=== PATIENT | female | born 1935 | race African-American/Black ===

== ENCOUNTER 2020-07-16 18:04 | Observation (INO) | payer MEDICARE, MEDICAID, SELFPAY ==
[2020-07-16] VITALS (7 sets, daily range): BP systolic 137–165; BP diastolic 65–109; PULSE 60–96; RESP 18–22; TEMP 37.4; O2SAT 100
--- NOTE | ~2020-07-16 | XR_ITS ---
EXAMINATION: XR chest 2V DATE: 07/16/2020 18:41 INDICATION: Shortness of breath TECHNIQUE: AP and lateral views of the chest are obtained. COMPARISON: None available FINDINGS: There are right perihilar opacities. Cardiomegaly is noted. There is no pleural effusion or pneumothorax. A dual-lead cardiac pacemaker of the left chest wall ends with leads in expected locat ions. Endoluminal stents are noted in the left upper extremity and the right subclavian vein. There i s severe thoracic spondylosis. IMPRESSION: 1. Right perihilar opacities which could be infectious or inflammatory although perihilar mass is a c onsideration. Further evaluation with CT of the chest is recommended. 2. Cardiomegaly. Reviewed, dictated and finalized at location A. IMPRESSION: 1. Right perihilar opacities which could be infectious or inflammatory although perihilar mass is a consideration. Further evaluation with CT of the chest is recommended. 2. Cardiomegaly.
--- NOTE | ~2020-07-16 | CT_ITS ---
EXAMINATION: CT diagnostic chest wo con DATE: 07/16/2020 22:10 INDICATION: Shortness of breath TECHNIQUE: Computed tomography (CT) of the chest was performed without intravenous contrast. The dose -length product (DLP) was 106.03 mGy-cm. Automated exposure control and iterative reconstruction tech nique were employed. COMPARISON: None FINDINGS: There are small pleural effusions. Fluid in the minor fissure accounts for the perihilar op acity described on chest radiograph from earlier today. There is a 1.6 cm nodular opacity of the righ t lung apex. There are innumerable nodules scattered throughout all lung zones which measure up to 3 mm. Cardiomegaly is noted. A dual-lead pacemaker of the left chest wall ends with its leads in the ri ght atrium and right ventricle. There is no pneumothorax. There is enlargement of the main and centra l pulmonary arteries, consistent with pulmonary hypertension. There is severe thoracic spondylosis. A n endoluminal stent is present in the right subclavian vein. There is a partially imaged endoluminal stent in the left axilla. IMPRESSION: 1. Small pleural effusions with loculated fluid in the minor fissure accounting for the chest radiogr aphic finding in question. 2. Cardiomegaly. 3. Nodular opacity of the right lung apex which may be infectious or inflammatory. Follow-up CT in th ree months is recommended. 4. Innumerable small lung nodules, possibly infectious or inflammatory. Attention on follow-up CT is recommended. Reviewed, dictated and finalized at location A. IMPRESSION: 1. Small pleural effusions with loculated fluid in the minor fissure accounting for the chest radiographic finding in question. 2. Cardiomegaly. 3. Nodular opacity of the right lung apex which may be infectious or inflammato ry. Follow-up CT in three months is recommended. 4. Innumerable small lung nodules, possibly infectious or inflammatory. Attenti on on follow-up CT is recommended.
--- NOTE | ~2020-07-16 | NM_ITS ---
EXAMINATION: NM pulmonary perfusion DATE: 07/16/2020 23:29 INDICATION: Shortness of breath TECHNIQUE: 2.8 mCi Tc-99m MAA was administered intravenously for perfusion images. Scintigraphic imag es of the chest were obtained. COMPARISON: None FINDINGS: Cardiomegaly is noted. Perfusion images show normal perfusion.. IMPRESSION: 1. Low probability for pulmonary embolism. Reviewed, dictated and finalized at location A.
--- NOTE | 2020-07-16 18:24 | ECG_ITS ---
Measurements Intervals [place] Rate: 76 P: 65 OK: 177 QRS: 73 QRSD: 173 T: -7 QT: 485 QTc: 546 Interpretive Statements ELECTRONIC ATRIAL PACEMAKER WITH INHIBITION ELECTRONIC VENTRICULAR PACEMAKER ATRIAL PREMATURE COMPLEXES BASELINE ARTIFACT- I, III, AVR, AVL, AVF, V3 NO FURTHER INTERPRETATION IS POSSIBLE ATYPICAL ECG Electronically Signed On 07-16-2020 19:03:38 CDT by Wilton Silva D.O.
--- NOTE | 2020-07-16 19:10 | PC.NURSE ---
Report given to GIANNI Ahn and Lizy RN
--- NOTE | 2020-07-16 19:15 | PC.NURSE ---
Pt. nelda smith. times for blood draw and IV access
--- NOTE | 2020-07-16 19:22 | ED.SOB ---
HPI - SOB/Dyspnea General Chief Complaint: Shortness of Breath/Dyspnea Stated Complaint: sob Time Seen by Provider: 07/16/20 19:13 Source: patient Mode of arrival: EMS Limitations: clinical condition History of Present Illness HPI Narrative: Patient is an 84-year-old female complaining of shortness of breath, going on for a while but worse today. Patient also complaining of left leg pain which she states started approximately 6 months ago when she fell. Per EMS when they arrived her oxygen saturation was 88%, was placed on 2 L nasal cannula and eventually went up to 98%. Patient denies any chest pain, abdominal pain, nausea, vomiting, fever or chills. Patient states she has a history of COPD, CHF and end-stage renal disease on dialysis. Patient states she gets dialysis on Wednesdays and Fridays, missed yesterday because of pain in her left lower extremity. Related Data Allergies Allergy/AdvReac Type Severity Reaction Status Date / Time Sulfa (Sulfonamide Allergy Unknown Verified 07/16/20 18:20 Antibiotics) Review of Systems Review of Systems: All systems reviewed & are unremarkable except as noted in HPI and below Constitutional: Constitutional: Denies body ache(s), Denies chills, Denies excessive sweating, Denies fatigue, Denies fever(s), Denies headache(s), Denies lethargy, Denies malaise, Denies weakness and Denies weight loss Eyes: Eyes: Denies blurry vision, Denies change in vision and Denies loss of vision ENT: Denies dizziness, Denies ear discharge, Denies headache(s), Denies lip swelling, Denies epistaxis, Denies nasal congestion, Denies neck pain, Denies throat swelling and Denies tongue swelling Cardiovascular: Cardiovascular: Denies chest pain, Denies chest pain at rest, Denies chest pain with activity, Denies diaphoresis, Denies rapid heart rate, Denies edema, Denies irregular heart rhythm, Denies lightheadedness and Denies palpitations Respiratory: Respiratory: Denies chest congestion, Reports cough and Denies hemoptysis Gastrointestinal: Gastrointestinal: Denies abdominal pain, Denies melena, Denies hematochezia, Denies diarrhea, Denies nausea, Denies vomiting and Denies hematemesis Musculoskeletal: Musculoskeletal: Denies abnormal gait, Denies deformity, Denies joint swelling, Denies limited range of motion, Denies neck pain and Denies numbness Neurologic: Denies Abnormal speech present, Denies abnormal gait, Denies confusion, Denies dizziness, Denies headache(s), Denies focal weakness, Denies loss of vision, Denies numbness, Denies Other visual disturbances, Denies Sensory deficit (Neuro) and Denies weakness Psychiatric: Psychiatric: Denies confusion, Denies depression, Denies auditory hallucinations, Denies homicidal ideation and Denies suicidal ideation Endocrine: Endocrine: Denies cold intolerance, Denies excessive sweating, Denies fatigue, Denies heat intolerance and Denies palpitations Hematologic/Lymphatic: Hematologic/Lymphatic: Denies easy bleeding and Denies easy bruising Allergic/Immunologic: Allergic/Immunologic: Denies lip swelling, Denies throat swelling and Denies tongue swelling Exam Const: General: cooperative, comfortable, well developed, alert and awake; No confusion Orientation/consciousness: oriented to person and oriented to place Limitations: no limitations Other: Moderate distress, frail, ill-appearing HENMT: Head: normal to inspection, normocephalic and atraumatic Ears: hearing grossly normal bilaterally, TM normal on the right and TM normal on the left General nose exam: Normal external nose present, Normal nares present and No nasal discharge present Face and sinus: normal facial exam Mouth: Yes Normal oral and palatal mucosa present, Yes lip normal, Yes tongue normal and Yes oropharynx normal Throat: posterior oropharynx normal, tonsils normal and uvula midline Eyes: General: appearance normal, both eyes and all related structures Pupils: Equal, round and reactive pupils p
--- NOTE | 2020-07-16 19:27 | PC.NURSE ---
assumed care of pt. Report from Basia ARCHER
[2020-07-16] MEDS: IPRATROPIUM BR 0.02% INH SOLN 0.5 MG/2.5 ML VIAL INHALATION (19:31)
[2020-07-16] MEDS: ALBUTEROL SULFATE NEB 2.5 MG/0.5 ML INH 5 MG INHALATION (19:31)
--- NOTE | 2020-07-16 19:35 | PC.NURSE ---
RN attempted IV access 2x no success. second RN in to attempt.
--- NOTE | 2020-07-16 19:40 | PC.NURSE ---
RT nelda pt. for blood due to unsuccessful blood draws.
[2020-07-16 19:47] LABS: Alveolar/Arterial O2 Gradient 72.5 mmHg; Base Excess ABG 6.5 mEq/l (+/-2.0); Carboxyhemoglobin 0.9 % THb (0-2.0); Fractional Inspired Oxygen 32 %; HCO3 ABG 31.2 mEq/l (22.0-26.0); Methemoglobin ABG 0.2 %THb (0-1.5); Oxygen Content ABG 14.7 %vol (16.0-22.0); Oxygen Saturation ABG 97.9 % (95.0-100.0); Oxyhemoglobin 95.9 % THb (90.0-100.0); PCO2 ABG 45.6 mmHg (35.0-45.0); PO2 ABG 102.3 mmHg (80.0-100.0); Total Hemoglobin 10.8 g/dL (12.0-18.0); pH ABG 7.453 (7.350-7.450)
[2020-07-16 19:48] LABS: Device NASAL CANNULA; Modified Allen's Test Pass; Site Drawn RIGHT RADIAL
[2020-07-16 19:53] LABS: Basophils Percent Auto 0.3 % (0.2-1.2); Eosinophils Percent Auto 0.5 % (0-4.4); Hematocrit 29.3 % (37.0-47.0); Hemoglobin 9.5 g/dL (12.0-15.0); Immature Granulocyte Absolute 0.03 K/mm3 (0.00-0.031); Immature Granulocyte Percent A 0.5 % (0-0.5); Lymphocytes Absolute Auto 0.61 K/mm3 (0.9-3.2); Lymphocytes Percent Auto 9.4 % (18.3-44.2); Mean Corpuscular HGB Conc 32.4 g/dl (32-36); Mean Corpuscular Hemoglobin 30.9 pg (26-34); Mean Corpuscular Volume 95.4 fl (80-100); Mean Platelet Volume 10.6 fl (7.4-10.4); Monocytes Percent Auto 15.3 % (2.6-8.5); Neutrophils Absolute Auto 4.8 K/mm3 (1.3-6.7); Platelet Count Result 151 k/mm3 (150-375); Red Blood Count 3.07 M/mm3 (4.2-5.4); Red Cell Distribution Width 14.8 % (11.5-14.5); White Blood Count 6.5 K/mm3 (4.5-10.0)
[2020-07-16 20:06] LABS: Anion Gap 11 mmol/L (8-16); Blood Urea Nitrogen 59 mg/dL (7-17); Calcium 9.1 mg/dL (8.4-10.2); Carbon Dioxide 35 mmol/L (22-30); Chloride 86 mmol/L (98-107); Estimated CRCL calculation 3 ml/min; Estimated Glomerular Filt Rate 4; Glucose 95 mg/dL (65-105); Potassium 4.1 mmol/L (3.4-5.0); Sodium 132 mmol/L (137-145)
[2020-07-16 20:08] LABS: INR 1.6; Prothrombin Time 19.9 Seconds (11.1-14.7)
[2020-07-16 20:09] LABS: Partial Thromboplastin Time 45.6 SECONDS (22.3-36.8)
[2020-07-16 20:11] LABS: D Dimer 1.37 ug/mL (<0.48)
[2020-07-16 20:21] LABS: NT Pro B Type Natriuretic Pept > 35000 PG/ML (5-100); Troponin I 0.084 ng/mL (0.000-0.034)
[2020-07-16] MEDS: methylPREDNISolone SOD SUCC 125 MG VIAL IV PUSH (20:22)
[2020-07-16] MEDS: HYDROcodone/acetaminophen (*CRX) 5-325 MG TABLET 1 TAB PO (21:27)
[2020-07-17] VITALS (34 sets, daily range): BP systolic 113–177; BP diastolic 57–77; PULSE 59–84; RESP 12–22; TEMP 36.3–37; O2SAT 98–100; BMI 27.7
--- NOTE | 2020-07-17 00:15 | PC.NURSE ---
Troponin 3 hr and troponin 6 hr were never ordered on pt. RN noticed at this time. JAYE from [facility] to draw troponin and run it as the 6 hr.
[2020-07-17] MEDS: DOXYCYCLINE HYCLATE 100 MG TABLET PO (00:52)
[2020-07-17] MEDS: ASPIRIN 81 MG CHEWABLE TABLET 324 MG PO (00:52)
[2020-07-17 01:13] LABS: Troponin I 0.088 ng/mL (0.000-0.034)
--- NOTE | 2020-07-17 02:00 | ADMGEN ---
This patient, Katharina Truong, was admitted to IMU Room 203-01. Patient/family oriented to hospital policies and general routines including ID bracelet, bed and alarms, visiting hours, pain management, procedures, bathroom and other care routines, personal items, smoking policy, room service/diet, and visiting hours. Information on how to activate the Rapid Response Team has been discussed. Patient/Family are encouraged to report perceived risks to care and to ask questions if they do not understand what they are told or what they should do. Anabelle ARCHER [id number]
[2020-07-17] MEDS: COLCHICINE 0.6 MG TABLET PO (10:02)
[2020-07-17] MEDS: carvediloL 3.125 MG TABLET PO ×2 (10:02→22:33)
[2020-07-17] MEDS: SEVELAMER CARBONATE 800 MG TABLET PO ×2 (10:02→17:00)
[2020-07-17] MEDS: PANTOPRAZOLE 40 MG TABLET PO (10:02)
[2020-07-17] MEDS: CLOPIDOGREL BISULFATE 75 MG TABLET PO (10:02)
[2020-07-17] MEDS: ATORVASTATIN 40 MG TABLET PO (10:02)
[2020-07-17] MEDS: VITAMIN B CMPLX/VIT C/FOLIC AC 1 CAPSULE 1 CAP PO (10:52)
--- NOTE | 2020-07-17 12:41 | PM.IMHP ---
H&P: HPI History of Present Illness Date/Time: 07/17/20 12:41 Patient is an 84-year-old female with PMH of ESRD on HD, comes in with shortness of breath, which got worse last night. she missed her HD last wednesday as she was not feeling well. she was noted to have low oxygen at 88% at home per EMS report and was placed on [place] oxygen with improvement. she denies any chest pian,a bdmoinal pain, nausea, vmoitng. since she has been here she has already felt better. no cough. no fever, chills. Chief Complaint: shortness of breath Review of Systems Constitutional: Constitutional: Denies fatigue and Denies weakness Eyes: Eyes: Denies blurry vision and Denies photophobia ENT: Denies epistaxis and Denies nasal congestion Cardiovascular: Cardiovascular: Denies chest pain and Denies palpitations Respiratory: Respiratory: Denies cough, Reports dyspnea, Reports dyspnea on exertion and Denies wheezing Gastrointestinal: Gastrointestinal: Denies abdominal pain, Denies bloating, Denies diarrhea, Denies nausea and Denies vomiting Genitourinary: Genitourinary: Denies hematuria and Denies flank pain Musculoskeletal: Musculoskeletal: Denies back pain and Denies neck pain Integumentary/Breasts: Skin/Breast: Denies dry skin and Denies rash Neurologic: Denies Abnormal speech present, Denies abnormal gait, Denies confusion and Denies numbness Psychiatric: Psychiatric: Denies anxiety and Denies confusion [facility] Family History Family History Father Dialysis complication Sibling Diabetes mellitus Mother Blood clots in brain Social History Social History Smoking status: Never smoker Alcohol intake: never Substance use: never Gender identity (if verbalized by the patient): Male Spiritual care concerns: No Meds Home Medications and Allergies Home Medications Medication Instructions Recorded Confirmed Type atorvastatin 40 mg PO DAILY 07/17/20 07/17/20 History carvedilol 3.125 mg PO BID 07/17/20 07/17/20 History clopidogrel 75 mg PO DAILY 07/17/20 07/17/20 History colchicine 0.6 mg PO DAILY 07/17/20 07/17/20 History ipratropium-albuterol 3 ml INHALATION PRN PRN 07/17/20 07/17/20 History oxycodone-acetaminophen 10 tablet PO QID PRN 07/17/20 07/17/20 History pantoprazole 40 mg PO DAILY 07/17/20 07/17/20 History sevelamer carbonate 800 mg PO BIDWMEAL 07/17/20 07/17/20 History vit B comp no.2-qdjxf-R-biotin 300 tablet PO DAILY 07/17/20 07/17/20 History [[facility]] Allergies Allergy/AdvReac Type Severity Reaction Status Date / Time Sulfa (Sulfonamide Allergy Unknown Verified 07/16/20 18:20 Antibiotics) Vital Signs Vital Signs - 24 hr 07/16/20 18:08 07/16/20 18:21 07/16/20 19:12 Temperature 99.4 F Pulse Rate 78 75 74 Respiratory Rate 18 22 H Blood Pressure 137/65 155/80 H Pulse Oximetry 100 100 07/16/20 19:30 07/16/20 20:00 07/16/20 22:12 Temperature Pulse Rate 76 76 96 Respiratory Rate 20 22 H 20 Blood Pressure 164/79 H 154/69 H Pulse Oximetry 100 100 07/16/20 22:13 07/17/20 00:36 07/17/20 01:02 Temperature 98.3 F Pulse Rate 60 84 Respiratory Rate 20 22 H Blood Pressure 165/109 H 153/58 H Pulse Oximetry 100 100 07/17/20 01:51 07/17/20 02:00 07/17/20 04:00 Temperature 98.6 F 97.3 F L Pulse Rate 84 78 67 Respiratory Rate 20 18 Blood Pressure 177/72 H 157/77 H Pulse Oximetry 99 100 07/17/20 06:00 07/17/20 08:00 07/17/20 08:58 Temperature 97.6 F Pulse Rate 63 81 Respiratory Rate 12 Blood Pressure 149/69 H Pulse Oximetry 100 98 07/17/20 09:55 07/17/20 10:02 07/17/20 11:25 Temperature Pulse Rate 67 72 Respiratory Rate Blood Pressure Pulse Oximetry 98 07/17/20 12:00 Temperature 98.2 F Pulse Rate 66 Respiratory Rate 16 Blood Pressure 148/58 H Pulse Oximetry 100 Exam Narrative: Exam Narrative: GENERAL: The p
--- NOTE | 2020-07-17 12:49 | PM.CNNEP ---
Assessment and Plan Assessment and plan (1) End-stage renal disease needing dialysis: Code(s): N18.6 - End stage renal disease; Z99.2 - Dependence on renal dialysis Status: Acute Assessment and Plan: Alison has end-stage renal disease. He is due for dialysis today. I wrote orders. Her potassium is okay. She has excess fluid. We will remove fluid during dialysis. (2) Acute exacerbation of CHF (congestive heart failure): Qualifiers: Heart failure type: unspecified Qualified Code(s): I50.9 - Heart failure, unspecified Code(s): I50.9 - Heart failure, unspecified Status: Acute Assessment and Plan: The patient has volume overload. I believe this is because she missed her dialysis on Wednesday. She did leave dialysis on Wednesday at her dry weight. The patient does not have any chest pain. She has no history of heart disease at she mentions. (3) Hypertension: Code(s): I10 - Essential (primary) hypertension Status: Acute Assessment and Plan: The patient has hypertension. Her blood pressure has been pretty good. We will keep an eye on this and give her her usual medications. (4) Renal osteodystrophy: Code(s): N25.0 - Renal osteodystrophy Status: Acute Assessment and Plan: Will check a phosphorus in the morning. 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 Will go ahead and give her some Epogen. History of Present Illness Reason for Consult Consult date: 07/17/20 Chief Complaint Chief complaint: CHF Exacerbation, ESRD on Dialysis History of Present Illness Narrative: Alison is a very pleasant 84-year-old lady who has multiple medical problems including end-stage renal disease on dialysis 3 times a week on Wednesdays and Fridays under Dr. Madrigal at [facility], hypertension, hyperlipidemia, gout, renal osteodystrophy, anemia. The patient says that she had a good dialysis on Wednesday. She left at her dry weight. On Wednesday she did not feel well so did not go to dialysis. This morning she woke up and she was short of breath so came to the emergency room. In the ER she was evaluated and found to have pulmonary edema. He was placed on some oxygen and she felt better. They admitted her. When I logged in this morning a found her on my list. She is actually Dr. Madrigal patient but he is out so asked me to cover. The patient denies any severe shortness of breath right now. She is still little bit uncomfortable but better with the oxygen. She has no swelling. Review of Systems Constitutional: Constitutional: Reports no additional constitutional complaints Eyes: Eyes: Reports no additional eye complaints ENT: Reports system reviewed and no additional complaints, except as documented Cardiovascular: Cardiovascular: Reports no additional cardiovascular complaints Respiratory: Respiratory: Reports no additional respiratory complaints Gastrointestinal: Gastrointestinal: Reports no additional gastrointestinal complaints Genitourinary: Genitourinary: Reports no additional female genitourinary complaints Musculoskeletal: Musculoskeletal: Reports no additional musculoskeletal complaints Integumentary/Breasts: Skin/Breast: Reports system reviewed and no additional complaints, except as docu Neurologic: Reports system reviewed and no additional complaints, except as documented Psychiatric: Psychiatric: Reports no additional psychiatric complaints Endocrine: Endocrine: Reports no additional endocrine complaints [facility] Past Medical History Medical History (Updated 07/17/20 @ 12:56 by Mamadou Manzanares MD) Erythropoietin deficiency anemia Hypertension Renal osteodystrophy Family History Family History Father Dialysis complication Sibling Diabetes mellitus M
[2020-07-17 16:46] LABS: Hepatitis B Surface Antigen Negative (Negative)
[2020-07-17 17:07] LABS: SARS-CoV-2 RNA PCR Negative
[2020-07-17 17:24] LABS: Hepatitis B Surface Anti Res Positive
[2020-07-17] MEDS: SODIUM CHLORIDE 0.9% IV 1,000 ML 100 ML IV CONT (18:00)
[2020-07-17] MEDS: EPOETIN ALFA-EPBX 10,000 UNITS/ML VIAL 10000 UNITS IV PUSH (21:18)
[2020-07-17] MEDS: oxyCODONE HCL (*CRX) 5 MG TAB IR PO (22:32)
[2020-07-17] MEDS: HEPARIN SODIUM 5,000 UNITS/ML VIAL 5000 UNITS SUB-Q (22:32)
--- NOTE | 2020-07-17 22:57 | PC.NURSE ---
Pt was in Dialysis til 2220.
[2020-07-18] VITALS (14 sets, daily range): BP systolic 122–152; BP diastolic 52–86; PULSE 65–91; RESP 14–20; TEMP 36.4–36.9; O2SAT 94–100
[2020-07-18] MEDS: oxyCODONE/ACETAMINOPHEN (*CRX) 5-325 MG TABLET 1 TABLET PO (01:50)
[2020-07-18 05:32] LABS: Basophils Percent Auto 0.1 % (0.2-1.2); Hematocrit 29.3 % (37.0-47.0); Hemoglobin 9.6 g/dL (12.0-15.0); Immature Granulocyte Absolute 0.05 K/mm3 (0.00-0.031); Immature Granulocyte Percent A 0.5 % (0-0.5); Lymphocytes Percent Auto 6.5 % (18.3-44.2); Mean Corpuscular HGB Conc 32.8 g/dl (32-36); Mean Corpuscular Hemoglobin 30.4 pg (26-34); Mean Corpuscular Volume 92.7 fl (80-100); Mean Platelet Volume 10.6 fl (7.4-10.4); Monocytes Absolute Auto 1.1 K/mm3 (0.1-0.6); Monocytes Percent Auto 11.5 % (2.6-8.5); Neutrophils Absolute Auto 7.6 K/mm3 (1.3-6.7); Neutrophils Percent Auto 81.4 % (45.5-73.1); Platelet Count Result 164 k/mm3 (150-375); Red Blood Count 3.16 M/mm3 (4.2-5.4); Red Cell Distribution Width 14.4 % (11.5-14.5); White Blood Count 9.3 K/mm3 (4.5-10.0)
[2020-07-18 06:01] LABS: Anion Gap 4 mmol/L (8-16); Blood Urea Nitrogen 30 mg/dL (7-17); Calcium 8.8 mg/dL (8.4-10.2); Carbon Dioxide 39 mmol/L (22-30); Chloride 93 mmol/L (98-107); Estimated CRCL calculation 5 ml/min; Estimated Glomerular Filt Rate 8; Glucose 126 mg/dL (65-105); Potassium 3.8 mmol/L (3.4-5.0); Sodium 136 mmol/L (137-145)
[2020-07-18] MEDS: SEVELAMER CARBONATE 800 MG TABLET PO ×2 (08:14→16:55)
[2020-07-18] MEDS: carvediloL 3.125 MG TABLET PO ×2 (08:14→20:55)
[2020-07-18] MEDS: PANTOPRAZOLE 40 MG TABLET PO (08:15)
[2020-07-18] MEDS: COLCHICINE 0.6 MG TABLET PO (08:15)
[2020-07-18] MEDS: ATORVASTATIN 40 MG TABLET PO (08:15)
[2020-07-18] MEDS: CLOPIDOGREL BISULFATE 75 MG TABLET PO (08:15)
[2020-07-18] MEDS: VITAMIN B CMPLX/VIT C/FOLIC AC 1 CAPSULE 1 CAP PO (08:15)
[2020-07-18] MEDS: HEPARIN SODIUM 5,000 UNITS/ML VIAL 5000 UNITS SUB-Q ×2 (08:20→20:56)
[2020-07-18] MEDS: oxyCODONE HCL (*CRX) 5 MG TAB IR PO (11:01)
--- NOTE | 2020-07-18 11:08 | PM.PNNEP ---
Progress Note: A&P Assessment and Plan (1) End-stage renal disease needing dialysis: Code(s): N18.6 - End stage renal disease; Z99.2 - Dependence on renal dialysis Status: Acute Assessment and Plan: Jackie has end-stage renal disease. she had dialysis yesterday. Her potassium is okay. Her lungs sound better and she has no swelling (2) Acute exacerbation of CHF (congestive heart failure): Qualifiers: Heart failure type: unspecified Qualified Code(s): I50.9 - Heart failure, unspecified Code(s): I50.9 - Heart failure, unspecified Status: Acute Assessment and Plan: her volume status is improved (3) Hypertension: Code(s): I10 - Essential (primary) hypertension Status: Acute Assessment and Plan: The patient has hypertension. Her blood pressure has been pretty good. We will keep an eye on this and give her her usual medications. (4) Renal osteodystrophy: Code(s): N25.0 - Renal osteodystrophy Status: Acute Assessment and Plan: Will check a phosphorus in the morning. (5) Erythropoietin deficiency anemia: Code(s): D63.1 - Anemia in chronic kidney disease Status: Acute Additional Plan Hemoglobin is 9.6. on Epogen with dialysis Subjective Date/time seen: 07/18/20 11:08 Interval history: jackie is feeling better today. No chest pain and no shortness of breath she has no swelling she is eating okay. She is on 1L of oxygen. She is on oxygen at home 02/11. Review of Systems Cardiovascular: Cardiovascular: Reports no additional cardiovascular complaints Respiratory: Respiratory: Reports no additional respiratory complaints Gastrointestinal: Gastrointestinal: Reports no additional gastrointestinal complaints Genitourinary: Genitourinary: Reports no additional female genitourinary complaints Exam Narrative: Exam Narrative: WDWN in NAD skin no rash head ncat lungs clear bilaterally cor reg no rub abd BS+ nontender and soft ext no edema or cyanosis Objective Data Vital Signs Vital Signs: Vital Signs - 24 hr 07/17/20 11:25 07/17/20 12:00 07/17/20 13:40 Temperature 36.8 C Pulse Rate 66 61 Respiratory Rate 16 Blood Pressure 148/58 H Pulse Oximetry 98 100 07/17/20 16:00 07/17/20 17:49 07/17/20 18:25 Temperature 36.8 C 36.8 C Pulse Rate 72 69 63 Respiratory Rate 14 18 Blood Pressure 125/59 L 131/66 Pulse Oximetry 100 07/17/20 18:30 07/17/20 18:45 07/17/20 19:00 Temperature Pulse Rate 61 63 60 Respiratory Rate Blood Pressure 132/63 130/68 123/57 L Pulse Oximetry 07/17/20 19:15 07/17/20 19:30 07/17/20 19:45 Temperature Pulse Rate 61 59 L 63 Respiratory Rate Blood Pressure 127/66 133/64 133/76 Pulse Oximetry 07/17/20 20:00 07/17/20 20:15 07/17/20 20:30 Temperature Pulse Rate 66 62 69 Respiratory Rate Blood Pressure 134/73 129/62 128/69 Pulse Oximetry 07/17/20 20:45 07/17/20 21:00 07/17/20 21:15 Temperature Pulse Rate 63 60 63 Respiratory Rate Blood Pressure 121/60 125/60 116/60 Pulse Oximetry 07/17/20 21:30 07/17/20 21:56 07/17/20 22:00 Temperature Pulse Rate 62 64 76 Respiratory Rate Blood Pressure 131/62 113/63 Pulse Oximetry 07/17/20 22:10 07/17/20 22:33 07/17/20 23:05 Temperature 36.8 C Pulse Rate 64 82 Respiratory Rate 18 Blood Pressure 129/62 Pulse Oximetry 100 07/18/20 00:00 07/18/20 02:00 07/18/20 03:10 Temperature 36.7 C 36.9 C Pulse Rate 89 69 66 Respiratory Rate 18 20 Blood Pressure 123/55 L 127/52 L Pulse Oximetry 96 99 07/18/20 04:00 07/18/20 06:00 07/18/20 08:00 Temperature 36.6 C Pulse Rate 91 66 71 Respiratory Rate 16 Blood Pressure 130/62 Pulse Oximetry 97 97 07/18/20 09:44 07/18/20 10:00 Temperature Pulse Rate 69 Respiratory Rate Blood Pressure Pulse Oximetry 97 Intake/Output Intake/Output: Int
--- NOTE | 2020-07-18 13:01 | PM.IMPN ---
Progress Note: A&P Assessment and Plan (1) End-stage renal disease needing dialysis: Code(s): N18.6 - End stage renal disease; Z99.2 - Dependence on renal dialysis Status: Acute Assessment and Plan: # SOB: mislsed dialysis. likely reason. cxr with nodular opacity in right lung apex. ct in three months recmomends. no cough. wbc count is normal. will treat empiricaly with ceftriaxone and azithromycin. BNP elevaed. nephrology consutled for inpatient HD. NM lung scan low probability pe. will stop her antibitoics as low liklihood of infectious etiology. # Right lung opacity: treat as pneumonia. needs fu ct scan as op basis. # congerstive heart failrue: check echo. liekly from missing diaysis # ESRD On HD : missed dialysis mondya. plan for dialysis per nephrology. # anemia: likely chroni cdue to ESRD. no bleeding. contineu to monitor. # elevated tropnoini: mild. likely due to renal insufficiency # HTN: ho me med # HLP ;atorvastain # Gout: # chronic pain: onoxycodone. # DVT proh:start heparin sq # Disposition: likely discharge [facility] if stable. Subjective Date/time seen: 07/18/20 13:01 Interval history: she is feeling better today. she got dialysis yetserday. no chest pain or sob. no cough. no abdominal pain, nausea, vomiting. she is on home oxygen. Review of Systems Constitutional: Constitutional: Denies fatigue and Denies weakness Eyes: Eyes: Denies blurry vision and Denies photophobia ENT: Denies epistaxis, Denies nasal congestion and Denies neck pain Cardiovascular: Cardiovascular: Denies chest pain, Denies palpitations, Reports dyspnea and Reports dyspnea on exertion Respiratory: Respiratory: Denies cough, Reports dyspnea, Reports dyspnea on exertion and Denies wheezing Gastrointestinal: Gastrointestinal: Denies abdominal pain, Denies bloating, Denies diarrhea, Denies nausea and Denies vomiting Genitourinary: Genitourinary: Denies hematuria and Denies flank pain Musculoskeletal: Musculoskeletal: Denies abnormal gait, Denies back pain, Denies neck pain and Denies numbness Integumentary/Breasts: Skin/Breast: Denies dry skin and Denies rash Neurologic: Denies Abnormal speech present, Denies abnormal gait, Denies confusion, Denies numbness and Denies weakness Psychiatric: Psychiatric: Denies anxiety and Denies confusion Endocrine: Endocrine: Denies fatigue and Denies palpitations Allergic/Immunologic: Allergic/Immunologic: Denies wheezing Exam Narrative: Exam Narrative: GENERAL: The patient is well developed, not in acute distress HEENT: Nonicteric sclerae, PERRLA, EOMI. Oropharynx clear. Moist mucous membranes. Conjunctivae appear well perfused. CHEST: Chest wall is nontender. HEART: Regular rate and rhythm without murmur, rubs, or gallops LUNGS: Clear to auscultation bilaterally. no respiratory distress ABDOMEN: Soft, positive bowel sounds, non-tender, no organomegaly. SKIN: No rash, no excessive bruising, petechiae, or purpura. NEUROLOGIC: Cranial nerves II-XII intact, alert and oriented x 3, no gross motor deficits EXTREMITIES: no edema, cyanosis or clubbing Objective Data Vital Signs Vital Signs: Vital Signs - 24 hr 07/17/20 13:40 07/17/20 16:00 07/17/20 17:49 Temperature 98.3 F Pulse Rate 61 72 69 Respiratory Rate 14 Blood Pressure 125/59 L Pulse Oximetry 100 07/17/20 18:25 07/17/20 18:30 07/17/20 18:45 Temperature 98.2 F Pulse Rate 63 61 63 Respiratory Rate 18 Blood Pressure 131/66 132/63 130/68 Pulse Oximetry 07/17/20 19:00 07/17/20 19:15 07/17/20 19:30 Temperature Pulse Rate 60 61 59 L Respiratory Rate Blood Pressure 123/57 L 127/66 133/64 Pulse Oximetry 07/17/20 19:45 07/17/20 20:00 07/17/20 20:15 Temperature Pulse Rate 63 66 62 Respiratory Rate Blood Pressure 133/76 134/73 129/62 Pulse Oximetry 07/17/20 20:30 07/17/20 20:45 07/17/20 21:00 Temperature Pulse Rate 69 63 60 Respiratory Rate Blood Pressure 128/69 12
--- NOTE | 2020-07-18 16:44 | PC.NURSE ---
This patient, Katharina Truong, was transferred to [facility] on 07/18/20 at 1644. Personal belongings sent with patient. Report given to Nelia. Appropriate documentation sent with patient.
--- NOTE | 2020-07-18 16:48 | PC.NURSE ---
This patient, Katharina Truong, was received from [facility] on 07/18/20 at 1648. Patient/family oriented to unit policies and routines
[2020-07-19] VITALS (24 sets, daily range): BP systolic 143–182; BP diastolic 59–88; PULSE 60–75; RESP 12–18; TEMP 35.6–37; O2SAT 95–100
[2020-07-19] MEDS: oxyCODONE/ACETAMINOPHEN (*CRX) 5-325 MG TABLET 1 TABLET PO (05:24)
[2020-07-19] MEDS: oxyCODONE HCL (*CRX) 5 MG TAB IR PO (05:25)
[2020-07-19] MEDS: SEVELAMER CARBONATE 800 MG TABLET PO ×2 (09:08→20:34)
[2020-07-19] MEDS: ATORVASTATIN 40 MG TABLET PO (09:09)
[2020-07-19] MEDS: COLCHICINE 0.6 MG TABLET PO (09:09)
[2020-07-19] MEDS: CLOPIDOGREL BISULFATE 75 MG TABLET PO (09:09)
[2020-07-19] MEDS: carvediloL 3.125 MG TABLET PO ×2 (09:09→20:35)
[2020-07-19] MEDS: HEPARIN SODIUM 5,000 UNITS/ML VIAL 5000 UNITS SUB-Q ×2 (09:09→20:36)
[2020-07-19] MEDS: PANTOPRAZOLE 40 MG TABLET PO (09:10)
[2020-07-19] MEDS: VITAMIN B CMPLX/VIT C/FOLIC AC 1 CAPSULE 1 CAP PO (09:10)
--- NOTE | 2020-07-19 12:49 | PM.PNNEP ---
Progress Note: A&P Assessment and Plan (1) End-stage renal disease needing dialysis: Code(s): N18.6 - End stage renal disease; Z99.2 - Dependence on renal dialysis Status: Acute Assessment and Plan: Jackie has end-stage renal disease. she is due for dialysis today. Her potassium has been okay. Her lungs sound better and she has no swelling Will take off 2 or 3L as tolerated by her blood pressure. (2) Acute exacerbation of CHF (congestive heart failure): Qualifiers: Heart failure type: unspecified Qualified Code(s): I50.9 - Heart failure, unspecified Code(s): I50.9 - Heart failure, unspecified Status: Acute Assessment and Plan: her volume status is improved (3) Hypertension: Code(s): I10 - Essential (primary) hypertension Status: Acute Assessment and Plan: The patient has hypertension. Her blood pressure has been pretty good. Will remove more fluid today. (4) Renal osteodystrophy: Code(s): N25.0 - Renal osteodystrophy Status: Acute Assessment and Plan: Phosphorus was not checked. Will check this now. (5) Erythropoietin deficiency anemia: Code(s): D63.1 - Anemia in chronic kidney disease Status: Acute Assessment and Plan: Hemoglobin is 9.6. She will get EPO with dialysis. Subjective Date/time seen: 07/19/20 12:49 Interval history: jackie is feeling better today. Lying flat in bed without shortness of breath. Due for dialysis today. Review of Systems Cardiovascular: Cardiovascular: Reports no additional cardiovascular complaints Respiratory: Respiratory: Reports no additional respiratory complaints Gastrointestinal: Gastrointestinal: Reports no additional gastrointestinal complaints Genitourinary: Genitourinary: Reports no additional female genitourinary complaints Exam Narrative: Exam Narrative: WDWN in NAD skin no rash or subcu nodules head ncat lungs clear bilaterally cor reg no rub or gallop abd BS+ nontender and soft ext no edema or cyanosis Objective Data Vital Signs Vital Signs: Vital Signs - 24 hr 07/18/20 16:00 07/18/20 16:48 07/18/20 19:50 Temperature 36.6 C 36.4 C Pulse Rate 65 71 Respiratory Rate 14 18 Blood Pressure 122/53 L 137/86 Pulse Oximetry 100 100 94 07/18/20 20:53 07/18/20 20:55 07/18/20 21:00 Temperature 36.4 C L Pulse Rate 84 84 84 Respiratory Rate 14 14 Blood Pressure 152/85 H Pulse Oximetry 94 94 07/19/20 05:17 07/19/20 08:00 07/19/20 09:00 Temperature 35.6 C L 35.8 C L Pulse Rate 65 66 Respiratory Rate 12 16 Blood Pressure 151/88 H 143/71 H Pulse Oximetry 99 96 95 07/19/20 09:09 Temperature Pulse Rate 75 Respiratory Rate Blood Pressure Pulse Oximetry Intake/Output Intake/Output: Intake & Output 07/16/20 07/17/20 07/18/20 07/19/20 23:59 23:59 23:59 23:59 Intake Total 1370 1150 690 Output Total 3000 Balance -1630 1150 690 Meds/Results Medications: Active Medications Generic Name Dose Route Start Last Admin Trade Name Freq PRN Reason Stop Dose Admin Albuterol 2.5 mg 07/17/20 09:50 Albuterol Sulfate Neb 2.5 Mg/0.5 Ml Inh INHALATION PRN PRN SHORTNESS OF BREATH/WHEEZING Atorvastatin Calcium 40 mg 07/17/20 09:30 07/19/20 09:09 Atorvastatin 40 Mg Tablet PO 40 mg DAILY CRYSTAL Administration Carvedilol 3.125 mg 07/17/20 09:30 07/19/20 09:09 Carvedilol 3.125 Mg Tablet PO 3.125 mg Q12HR CRYSTAL Administration Clopidogrel Bisulfate 75 mg 07/17/20 09:30 07/19/20 09:09 Clopidogrel Bisulfate 75 Mg Tablet PO 75 mg DAILY CRYSTAL Administration Colchicine 0.6 mg 07/17/20 09:30 07/19/20 09:09 Colchicine 0.6 Mg Tablet PO 0.6 mg DAILY CRYSTAL Administration Epoetin Allan-epbx 10,000 units 07/17/20 13:00 07/17/20 21:18 Epoetin Allan-Epbx 10,000 Units/Ml Vial IV PUSH 10,000 units MOWEFR CRYSTAL Administration Heparin Sodium (Porcine) 5,0
--- NOTE | 2020-07-19 12:52 | PM.DS ---
DS: Admitting Diagnosis Admitting Diagnosis Admitting Diagnosis: shortness of breath DS: Discharge Diagnosis Discharge Diagnosis (1) Erythropoietin deficiency anemia: Code(s): D63.1 - Anemia in chronic kidney disease Status: Acute (2) Renal osteodystrophy: Code(s): N25.0 - Renal osteodystrophy Status: Acute (3) Hypertension: Code(s): I10 - Essential (primary) hypertension Status: Acute (4) Acute exacerbation of CHF (congestive heart failure): Qualifiers: Heart failure type: unspecified Qualified Code(s): I50.9 - Heart failure, unspecified Code(s): I50.9 - Heart failure, unspecified Status: Acute (5) End-stage renal disease needing dialysis: Code(s): N18.6 - End stage renal disease; Z99.2 - Dependence on renal dialysis Status: Acute DS: Summary Hospital Course Reason for hospitalization: shortness of breath Hospital Course: # SOB: mislsed dialysis. likely reason. cxr with nodular opacity in right lung apex. ct in three months recmomends. no cough. wbc count is normal. initially placed empirically on ceftraixone ad azithromycin. BNP elevaed. nephrology consutled for inpatient HD. NM lung scan low probability pe. later subseqauently stopped her antibotiics. her sob resolved with dialysis. low liklihood of infectious etiology. # Right lung opacity: treat as pneumonia. needs fu ct scan as op basis. she reports she has those opaciites in the past as well. # congestive heart failrue: liekly from missing diaysis. this is well compesanted currently. # ESRD On HD : missed dialysis mondya. plan for dialysis per nephrology. # anemia: likely chroni cdue to ESRD. no bleeding. contineu to monitor. # elevated tropnoini: mild. likely due to renal insufficiency # HTN: ho me med # HLP ;atorvastain # Gout: # chronic pain: onoxycodone. # DVT proh:start heparin sq # Disposition: home with home health. dsicussed with the patient. she is agreeable. Status at Discharge Overall status at discharge: patient is back to baseline Time Spent with Patient Time attestation: Total time spent providing and/or coordinating discharge services:35 mins Exam Narrative: Exam Narrative: GENERAL: The patient is well developed, not in acute distress HEENT: Nonicteric sclerae, PERRLA, EOMI. Oropharynx clear. Moist mucous membranes. Conjunctivae appear well perfused. CHEST: Chest wall is nontender. HEART: Regular rate and rhythm without murmur, rubs, or gallops LUNGS: Clear to auscultation bilaterally. no respiratory distress ABDOMEN: Soft, positive bowel sounds, non-tender, no organomegaly. SKIN: No rash, no excessive bruising, petechiae, or purpura. NEUROLOGIC: Cranial nerves II-XII intact, alert and oriented x 3, no gross motor deficits EXTREMITIES: no edema, cyanosis or clubbing Discharge Plan Discharge Attending physician on discharge: Neil Cerda Consulting providers: Semaj Madrigal Discharging Clinician: Neil Cerda Anticipated Discharge Date/Time: 07/19/20 17:47 Patient Disposition: Home Health Service Activity: as tolerated Diet: heart healthy and renal Discharge Instructions: continue diaslysis as scheduled Wednesday and wednesday. Patient Instructions: Antibiotic Form, Clopidogrel (By mouth), Heart Failure (GEN), Hypercoagulation (GEN), End Stage Kidney Disease (GEN), Hemodialysis (GEN) Stand Alone Forms: General Discharge Information Follow-up/Referrals: Semaj Madrigal MD [Physician] - 2 Weeks Brendan Abbott MD [Primary Care Provider] - 1 Week Discharge Medications: Continued atorvastatin 40 mg tablet 40 mg PO DAILY RF: 0 ipratropium-albuterol 0.5 mg-3 mg(2.5 mg base)/3 mL solution for nebulization 3 ml INHALATION PRN PRN (Reason: Shortness Of Breath Or Wheezing) RF: 0 clopidogrel 75 mg tablet 75 mg PO DAILY RF: 0 carvedilol 3.125 mg tablet 3.125 mg PO BID RF: 0 oxycodone-acetaminophen 10-325 mg tabl
--- NOTE | 2020-07-19 15:40 | PC.NURSE ---
Patient to dialysis via hospital bed.
[2020-07-19 16:54] LABS: Albumin Level 3.4 g/dL (3.5-5.1); Anion Gap 8 mmol/L (8-16); Blood Urea Nitrogen 51 mg/dL (7-17); Calcium 8.9 mg/dL (8.4-10.2); Carbon Dioxide 34 mmol/L (22-30); Chloride 88 mmol/L (98-107); Estimated CRCL calculation 4 ml/min; Estimated Glomerular Filt Rate 6; Glucose 114 mg/dL (65-105); Phosphorus 4.2 mg/dL (2.5-4.5); Potassium 3.8 mmol/L (3.4-5.0); Sodium 130 mmol/L (137-145)
[2020-07-19] MEDS: EPOETIN ALFA-EPBX 10,000 UNITS/ML VIAL 10000 UNITS IV PUSH (18:38)
--- NOTE | 2020-07-19 20:40 | PC.NURSE ---
This patient, Katharina Hudson, was received from [Dialysis ] on 07/19/20 at 2018. Patient/family oriented to unit policies and routines. Patient informed that discharge order is in but requests to stay overnight and leave in the AM. This is okay with ordering physician per day RN. Pt will be discharged in the AM, son also aware.
[2020-07-20] MEDS: oxyCODONE HCL (*CRX) 5 MG TAB IR PO (03:57)
[2020-07-20] MEDS: oxyCODONE/ACETAMINOPHEN (*CRX) 5-325 MG TABLET 1 TABLET PO (03:57)
[2020-07-20 06:25] VITALS: BP 169/70; PULSE 64; RESP 12; TEMP 36.4; O2SAT 100
[2020-07-20 07:53] VITALS: O2SAT 97
[2020-07-20 08:00] VITALS: PULSE 70; RESP 12; O2SAT 97
[2020-07-20] MEDS: SEVELAMER CARBONATE 800 MG TABLET PO (08:07)
[2020-07-20] MEDS: ATORVASTATIN 40 MG TABLET PO (08:07)
[2020-07-20] MEDS: CLOPIDOGREL BISULFATE 75 MG TABLET PO (08:07)
[2020-07-20] MEDS: COLCHICINE 0.6 MG TABLET PO (08:07)
[2020-07-20] MEDS: PANTOPRAZOLE 40 MG TABLET PO (08:07)
[2020-07-20] MEDS: VITAMIN B CMPLX/VIT C/FOLIC AC 1 CAPSULE 1 CAP PO (08:07)
[2020-07-20 08:08] VITALS: PULSE 67
[2020-07-20] MEDS: carvediloL 3.125 MG TABLET PO ×2 (08:08→09:47)
[2020-07-20] MEDS: HEPARIN SODIUM 5,000 UNITS/ML VIAL 5000 UNITS SUB-Q (08:08)
--- NOTE | 2020-07-20 08:37 | PM.PNNEP ---
Progress Note: A&P Assessment and Plan (1) End-stage renal disease needing dialysis: Code(s): N18.6 - End stage renal disease; Z99.2 - Dependence on renal dialysis Status: Acute Assessment and Plan: Jackie has end-stage renal disease. She had dialysis yesterday and did well. (2) Acute exacerbation of CHF (congestive heart failure): Qualifiers: Heart failure type: unspecified Qualified Code(s): I50.9 - Heart failure, unspecified Code(s): I50.9 - Heart failure, unspecified Status: Acute Assessment and Plan: She is euvolemic (3) Hypertension: Code(s): I10 - Essential (primary) hypertension Status: Acute Assessment and Plan: The patient has hypertension. her blood pressure is a bit high. Will increase carvedilol to 6.25 twice a day (4) Renal osteodystrophy: Code(s): N25.0 - Renal osteodystrophy Status: Acute Assessment and Plan: Phosphorus was not checked. Will check this now. (5) Erythropoietin deficiency anemia: Code(s): D63.1 - Anemia in chronic kidney disease Status: Acute Assessment and Plan: Hemoglobin is 9.6. She will get EPO with dialysis. Additional Plan on Epogen with dialysis Subjective Date/time seen: 07/20/20 08:37 Interval history: jackie is feeling better today. Eager for discharge. Review of Systems Cardiovascular: Cardiovascular: Reports no additional cardiovascular complaints Respiratory: Respiratory: Reports no additional respiratory complaints Gastrointestinal: Gastrointestinal: Reports no additional gastrointestinal complaints Genitourinary: Genitourinary: Reports no additional female genitourinary complaints Exam Narrative: Exam Narrative: WDWN in NAD skin no rash or subcu nodules head ncat lungs clear cor reg no rub or gallop abd BS+ nontender and soft ext no edema Objective Data Vital Signs Vital Signs: Vital Signs - 24 hr 07/19/20 09:00 07/19/20 09:09 07/19/20 14:30 Temperature 36.2 C L Pulse Rate 75 70 Respiratory Rate 16 Blood Pressure 182/78 H Pulse Oximetry 95 98 07/19/20 15:50 07/19/20 16:02 07/19/20 16:15 Temperature 36.7 C Pulse Rate 70 64 64 Respiratory Rate 18 Blood Pressure 152/81 H 153/67 H 150/69 H Pulse Oximetry 07/19/20 16:30 07/19/20 16:45 07/19/20 17:00 Temperature Pulse Rate 63 61 60 Respiratory Rate Blood Pressure 146/74 H 151/68 H 157/73 H Pulse Oximetry 07/19/20 17:15 07/19/20 17:30 07/19/20 17:45 Temperature Pulse Rate 60 60 63 Respiratory Rate Blood Pressure 155/70 H 158/68 H 170/74 H Pulse Oximetry 07/19/20 18:00 07/19/20 18:15 07/19/20 18:30 Temperature Pulse Rate 61 61 60 Respiratory Rate Blood Pressure 166/76 H 164/72 H 166/65 H Pulse Oximetry 07/19/20 18:45 07/19/20 19:00 07/19/20 19:15 Temperature Pulse Rate 62 62 60 Respiratory Rate Blood Pressure 143/64 H 149/59 H 148/73 H Pulse Oximetry 07/19/20 19:37 07/19/20 19:47 07/19/20 20:18 Temperature 36.4 C L 36.6 C Pulse Rate 61 63 68 Respiratory Rate 16 16 Blood Pressure 154/68 H 159/70 H 163/59 H Pulse Oximetry 100 07/19/20 20:35 07/20/20 06:25 07/20/20 07:53 Temperature 36.4 C L Pulse Rate 72 64 Respiratory Rate 12 Blood Pressure 169/70 H Pulse Oximetry 100 97 07/20/20 08:08 Temperature Pulse Rate 67 Respiratory Rate Blood Pressure Pulse Oximetry Intake/Output Intake/Output: Intake & Output 07/17/20 07/18/20 07/19/20 07/20/20 23:59 23:59 23:59 23:59 Intake Total 1370 1150 1300 340 Output Total 3000 3000 Balance -1630 1150 -1700 340 Meds/Results Medications: Active Medications Generic Name Dose Route Start Last Admin Trade Name Freq PRN Reason Stop Dose Admin Albuterol 2.5 mg 07/17/20 09:50 Albuterol Sulfate Neb 2.5 Mg/0.5 Ml Inh INHALATION PRN PRN SHORTNESS OF BREATH/WHEEZING Atorvastatin Calc
[2020-07-20 09:47] VITALS: PULSE 70
[2020-07-20 10:15] VITALS: BP 139/55; PULSE 67; RESP 18; TEMP 36.4; O2SAT 100
--- NOTE | 2020-07-20 10:30 | PM.IMPN ---
Progress Note: A&P Assessment and Plan (1) End-stage renal disease needing dialysis: Code(s): N18.6 - End stage renal disease; Z99.2 - Dependence on renal dialysis Status: Acute Assessment and Plan: # SOB: mislsed dialysis. likely reason. cxr with nodular opacity in right lung apex. ct in three months recmomends. no cough. wbc count is normal. will treat empiricaly with ceftriaxone and azithromycin. BNP elevaed. nephrology consutled for inpatient HD. NM lung scan low probability pe. will stop her antibitoics as low liklihood of infectious etiology. # Right lung opacity: treat as pneumonia. needs fu ct scan as op basis. ordered CT chest woc in 3 months # congerstive heart failrue: check echo. likely from missing diaysis # ESRD On HD : missed dialysis mondya. plan for dialysis per nephrology. # anemia: likely chronic due to ESRD. no bleeding. continue to monitor. # elevated tropnoini: mild. likely due to renal insufficiency # HTN: ho me med # HLP: atorvastain # Gout: # chronic pain: onoxycodone. # DVT proh:start heparin sq # Disposition: discharge today. . Subjective Date/time seen: 07/20/20 10:30 th epatient did not discharge yestrerday because of issue with her ride. she feels well without any sob, chest pain. she is getting picked up at 12 noon. Review of Systems Review of Systems: Narrative: - CONSTITUTIONAL: Denies weight loss, fever and chills. - HEENT: Denies changes in vision and hearing - RESPIRATORY: Denies SOB and cough. - CV: Denies palpitations and CP. - GI: Denies abdominal pain, nausea, vomiting and diarrhea. - : Denies dysuria and urinary frequency. - MSK: Denies myalgia and joint pain. - SKIN: Denies rash and pruritus. - NEUROLOGICAL: Denies headache and syncope. - PSYCHIATRIC: Denies recent changes in mood. Denies anxiety and depression. Exam Narrative: Exam Narrative: GENERAL: The patient is well developed, not in acute distress HEENT: Nonicteric sclerae, PERRLA, EOMI. Oropharynx clear. Moist mucous membranes. Conjunctivae appear well perfused. CHEST: Chest wall is nontender. HEART: Regular rate and rhythm without murmur, rubs, or gallops LUNGS: Clear to auscultation bilaterally. no respiratory distress ABDOMEN: Soft, positive bowel sounds, non-tender, no organomegaly. SKIN: No rash, no excessive bruising, petechiae, or purpura. NEUROLOGIC: Cranial nerves II-XII intact, alert and oriented x 3, no gross motor deficits EXTREMITIES: no edema, cyanosis or clubbing Objective Data Vital Signs Vital Signs: Vital Signs - 24 hr 07/19/20 14:30 07/19/20 15:50 07/19/20 16:02 Temperature 97.1 F L 98.1 F Pulse Rate 70 70 64 Respiratory Rate 16 18 Blood Pressure 182/78 H 152/81 H 153/67 H Pulse Oximetry 98 07/19/20 16:15 07/19/20 16:30 07/19/20 16:45 Temperature Pulse Rate 64 63 61 Respiratory Rate Blood Pressure 150/69 H 146/74 H 151/68 H Pulse Oximetry 07/19/20 17:00 07/19/20 17:15 07/19/20 17:30 Temperature Pulse Rate 60 60 60 Respiratory Rate Blood Pressure 157/73 H 155/70 H 158/68 H Pulse Oximetry 07/19/20 17:45 07/19/20 18:00 07/19/20 18:15 Temperature Pulse Rate 63 61 61 Respiratory Rate Blood Pressure 170/74 H 166/76 H 164/72 H Pulse Oximetry 07/19/20 18:30 07/19/20 18:45 07/19/20 19:00 Temperature Pulse Rate 60 62 62 Respiratory Rate Blood Pressure 166/65 H 143/64 H 149/59 H Pulse Oximetry 07/19/20 19:15 07/19/20 19:37 07/19/20 19:47 Temperature 97.5 F L Pulse Rate 60 61 63 Respiratory Rate 16 Blood Pressure 148/73 H 154/68 H 159/70 H Pulse Oximetry 07/19/20 20:18 07/19/20 20:35 07/20/20 06:25 Temperature 98 F 97.5 F L Pulse Rate 68 72 64 Respiratory Rate 16 12 Blood Pressure 163/59 H 169/70 H Pulse Oximetry 100 100 07/20/20 07:53 07/20/20 08:00 07/20/20 08:08 Temperature Pulse Rate 70 67 Respiratory Rate 12 Blood Pressure Pulse Oximetry 97 97 07/20
[2020-07-20 19:46] LABS: Hepatitis B Core Ab Total Nonreactive (Nonreactive)
== END 2020-07-20 12:15 | disposition home or self-care (01) ==
LOC: ANHED 07-17 00:21 → ANHIMU 07-17 01:59 → ANH3MED 07-19 09:18 → ANHIMU 07-23 10:00
PROVIDERS: Emergency Medicine; Internal Medicine Nephrology; Admitting Provider Internal Medicine; Emergency Provider Emergency Medicine; PCP Family Medicine Adolescent Medicine; Visit Provider Internal Medicine
DX: I13.2 Hypertensive heart and chronic kidney disease with heart failure and with stage 5 chronic kidney disease, or end stage renal disease (principal); I50.9 Heart failure, unspecified; N18.6 End stage renal disease; Z99.2 Dependence on renal dialysis; N25.0 Renal osteodystrophy; D63.1 Anemia in chronic kidney disease; R91.8 Other nonspecific abnormal finding of lung field; R77.8 Other specified abnormalities of plasma proteins; Z20.822 Contact with and (suspected) exposure to COVID-19
CPT/HCPCS: J0887; 36415; 36600; 71046; 71250; 78580; 80048; 80069; 82375; 82805; 83050; 83880; 84484; 85025; 85380; 85610; 85730; 86704; 86706; 87340; 93005; 94640; 96365; 96366; 96367; 96372; 96375; 96376; 97161; 97165; 97530; 97535; 99285; A9270; A9540; C9803; G0257; G0378; J0456; J0696; J1644; J2930; J7030; Q5106; U0003; U0005

== ENCOUNTER 2020-10-19 13:47 | Inpatient (IN) | payer MEDICARE, MEDICAID, SELFPAY ==
[2020-10-19] VITALS (9 sets, daily range): BP systolic 163–206; BP diastolic 70–101; PULSE 62–82; RESP 18–20; TEMP 36.5–37.4; O2SAT 94–100; BMI 27.1
--- NOTE | ~2020-10-19 | CT_ITS ---
EXAMINATION: CT femur LT wo con DATE: 10/20/2020 10:02 INDICATION: Left thigh pain. TECHNIQUE: Computed tomography (CT) of the left femur was performed without intravenous contrast. Aut omated exposure control and iterative reconstruction technique were employed. The dose-length product was 904.39 mGy-cm. COMPARISON: Left hip, femur, knee radiographs 10/19/2020, left hip radiographs 10/09/2017 FINDINGS: There is a bipolar left hip hemiarthroplasty. There are extensive lucencies around the femo ral stem with posterior cortical dehiscence spanning 10 cm craniocaudal. There is a nondisplaced trejo sverse periprosthetic fracture of left femoral diaphysis near the tip of the femoral stem. There is s evere left knee osteoarthritis. No knee joint effusion. IMPRESSION: 1. Left hip bipolar hemiarthroplasty with extensive lucencies around the femoral stem, consistent wit h loosening versus infection, and transverse periprosthetic fracture near the tip of the femoral stem . 2. Severe left knee osteoarthritis. Reviewed, dictated and finalized at location A. IMPRESSION: 1. Left hip bipolar hemiarthroplasty with extensive lucencies around the femora l stem, consistent with loosening versus infection, and transverse periprosthet ic fracture near the tip of the femoral stem. 2. Severe left knee osteoarthritis.
--- NOTE | ~2020-10-19 | XR_ITS ---
XR femur LT min 2V 10/19/2020 15:24 Indication: Left leg pain Procedure: 2 views left femur Comparison: 10/09/2017 Findings: There is a left bipolar femoral hemiarthroplasty. There is developing lucency at the cement bone interface, suspicious for loosening. There is a possible nondisplaced fracture just distal to t he prosthesis. There is suggestion of periosteal reaction anteriorly. Impression: 1: Possible nondisplaced midshaft fracture of the left femur distal to the prosthesis. There is incre asing lucency at the cement bone interface, suspicious for loosening. Reviewed, dictated and finalized at location A. Impression: 1: Possible nondisplaced midshaft fracture of the left femur distal to the pros thesis. There is increasing lucency at the cement bone interface, suspicious fo r loosening.
--- NOTE | ~2020-10-19 | XR_ITS ---
XR hip LT 2V w AP pelvis 10/19/2020 15:23 Indication: Left hip pain Procedure: 3 views left hip including AP pelvis Comparison: 10/09/2017 Findings: There are bilateral hip arthroplasties. There is developing lucency surrounding the cement bone interface of the left femur, suspicious for loosening. No fracture is identified. The right pros thesis appears well seated. Impression: 1: Lucency at the cement bone interface of the left femoral prosthesis, suspicious for loosening. No fracture identified. Reviewed, dictated and finalized at location A. Impression: 1: Lucency at the cement bone interface of the left femoral prosthesis, suspici ous for loosening. No fracture identified.
--- NOTE | ~2020-10-19 | XR_ITS ---
XR knee LT 3V 10/19/2020 15:24 Indication: Left knee pain Procedure: 3 views left knee Comparison: 10/19/2020 Findings: There is moderate osteoarthritis of the left knee. Small joint effusion. Osteopenia. No fra cture or traumatic malalignment. No foreign bodies. Impression: 1: Moderate osteoarthritis of the left knee. Reviewed, dictated and finalized at location A. Impression: 1: Moderate osteoarthritis of the left knee.
--- NOTE | 2020-10-19 14:17 | PC.NURSE ---
Patient states she gets dialysis on M//.
[2020-10-19] MEDS: fentaNYL CITRATE INJ (*CRX) 100 MCG/2 ML VIAL 50 MCG IV PUSH (14:28)
[2020-10-19] MEDS: carvediloL 3.125 MG TABLET PO (14:34)
[2020-10-19 14:39] LABS: Basophils Absolute Auto 0.1 K/mm3 (0.0-0.1); Basophils Percent Auto 1.2 % (0.2-1.2); Eosinophils Absolute Auto 0.3 K/mm3 (0-0.3); Eosinophils Percent Auto 6.2 % (0-4.4); Hematocrit 34.6 % (37.0-47.0); Hemoglobin 10.9 g/dL (12.0-15.0); Immature Granulocyte Absolute 0.02 K/mm3 (0.00-0.031); Immature Granulocyte Percent A 0.5 % (0-0.5); Lymphocytes Percent Auto 14.8 % (18.3-44.2); Mean Corpuscular HGB Conc 31.5 g/dl (32-36); Mean Corpuscular Volume 98.3 fl (80-100); Mean Platelet Volume 11.3 fl (7.4-10.4); Monocytes Absolute Auto 0.6 K/mm3 (0.1-0.6); Monocytes Percent Auto 13.5 % (2.6-8.5); Neutrophils Absolute Auto 2.6 K/mm3 (1.3-6.7); Neutrophils Percent Auto 63.8 % (45.5-73.1); Platelet Count Result 163 k/mm3 (150-375); Red Blood Count 3.52 M/mm3 (4.2-5.4); Red Cell Distribution Width 16.5 % (11.5-14.5); White Blood Count 4.1 K/mm3 (4.5-10.0)
[2020-10-19 14:47] LABS: Anion Gap 11 mmol/L (8-16); Blood Urea Nitrogen 28 mg/dL (7-17); Calcium 9.7 mg/dL (8.4-10.2); Carbon Dioxide 38 mmol/L (22-30); Chloride 86 mmol/L (98-107); Creatine Kinase 37 U/L (30-135); Estimated CRCL calculation 6 ml/min; Estimated Glomerular Filt Rate 10; Glucose 81 mg/dL (65-105); Lactic Acid Reflex 1.3 mmol/L (0.7-2.1); Potassium 4.4 mmol/L (3.4-5.0); Sodium 135 mmol/L (137-145)
--- NOTE | 2020-10-19 14:56 | ED.LOWEXIN ---
HPI - Extremity Injury (Lower) General Chief Complaint: Extremity Injury, Lower Stated Complaint: leg pain Time Seen by Provider: 10/19/20 13:52 History of Present Illness HPI Narrative: Patient is an 85-year-old female who presents ER with right lower extremity pain. Located over the femur. Denies trauma. Ongoing for last 2 days. Unable to ambulate. Typically walks with a walker. Lives at home with her sister and they care for each other. No numbness or tingling to the extremity. Has history of arthroplasty to the hip. She has been seen by Dr. Frausto at [facility] due to a loose arthroplasty. Last visit was a month ago. She is unsure what the plan is. Related Data Home Medications Medication Instructions Recorded Confirmed Melanie-Beltran Rx 300 tablet PO DAILY 07/17/20 07/17/20 atorvastatin 40 mg PO DAILY 07/17/20 07/17/20 clopidogrel 75 mg PO DAILY 07/17/20 07/17/20 colchicine 0.6 mg PO DAILY 07/17/20 07/17/20 oxycodone-acetaminophen 10 tablet PO QID PRN 07/17/20 07/17/20 pantoprazole 40 mg PO DAILY 07/17/20 07/17/20 sevelamer carbonate 800 mg PO BIDWMEAL 07/17/20 07/17/20 aspirin 81 mg PO DAILY 10/19/20 carvedilol [Coreg] 3.25 mg PO Q12HR 10/19/20 lisinopril 20 mg PO DAILY 10/19/20 Allergies Allergy/AdvReac Type Severity Reaction Status Date / Time sulfanilamide Allergy Unknown Unknown Verified 10/19/20 13:51 Sulfa (Sulfonamide Allergy Unknown Verified 10/19/20 13:51 Antibiotics) Review of Systems Review of Systems: All systems reviewed & are unremarkable except as noted in HPI and below Constitutional: Constitutional: Denies chills, Denies fever(s) and Denies weakness ENT: Denies nasal congestion and Denies sore throat Gastrointestinal: Gastrointestinal: Denies abdominal pain, Denies nausea and Denies vomiting Musculoskeletal: Musculoskeletal: Denies back pain, Denies arthralgias, Denies joint swelling and Reports muscle cramps Neurologic: Denies headache(s), Denies focal weakness, Denies numbness and Denies weakness [facility] Past Medical History Medical History (Updated 10/19/20 @ 20:05 by Rohan Daily MD) End-stage renal disease needing dialysis Erythropoietin deficiency anemia Hypertension Loose total hip arthroplasty Renal osteodystrophy Surgical History Surgical History (Updated 10/19/20 @ 20:01 by Rohan Daily MD) History of total hip arthroplasty Bilateral Family History Family History Father Dialysis complication Sibling Diabetes mellitus Mother Blood clots in brain Social History Social History (System 07/19/20 @ 10:01 by Nicole Martinez) Smoking status: Never smoker Alcohol intake: never Substance use: never Gender identity (if verbalized by the patient): Male Spiritual care concerns: No Exam Narrative: Exam Narrative: GENERAL: Well-appearing, well-nourished, and in no acute distress. HEAD: Normocephalic, atraumatic. ENT: Mucous membranes moist. CHEST: Clear to auscultation. No respiratory distress. HEART: Regular rate and rhythm. Normal peripheral pulses. ABDOMEN: Soft, nontender, nondistended. EXTREMITIES: Focused exam left lower extremity reveals tenderness to manual palpation of the anterior aspect of the thigh and the center and slightly proximally. Patient maintains range of motion of the knee and the hip though she has increased pain with passive and active range of motion. Patient unable to ambulate due to pain. SKIN: Warm, dry, no rash. NEURO: Alert and oriented x3. PSYCH: Normal mood and affect. Course Course Emergency Course: Discussed case with orthopedic surgery at [facility]. They reviewed patient's x-rays from today and patient has similar lucency on x-rays from 1 month ago. They feel patient should be treated nonoperatively as she is high risk of given her comorbidities should she have a surgery. They would like her to be weightbearing as tolerated an
[2020-10-19] MEDS: MORPHINE SULFATE (*CRX) 4 MG/ML INJ IV PUSH ×2 (18:51→22:39)
--- NOTE | 2020-10-19 20:06 | PC.NURSE ---
pt ate approx. 50% of boxed lunch. call light in reach. will continue to monitor.
--- NOTE | 2020-10-19 21:31 | PC.NURSE ---
Pt appears asleep. call light in reach. lights in room dimmed. will continue to monitor.
--- NOTE | 2020-10-19 23:00 | ADMGEN ---
This patient, Katharina Hudson, was admitted to Medical Room 242-. Patient/family oriented to hospital policies and general routines including ID bracelet, bed and alarms, visiting hours, pain management, procedures, bathroom and other care routines, personal items, smoking policy, room service/diet, and visiting hours. Information on how to activate the Rapid Response Team has been discussed. Patient/Family are encouraged to report perceived risks to care and to ask questions if they do not understand what they are told or what they should do.
[2020-10-20] MEDS: MORPHINE SULFATE (*CRX) 4 MG/ML INJ IV PUSH ×3 (04:48→19:31)
[2020-10-20 06:00] VITALS: BP 153/70; PULSE 62; RESP 16; TEMP 36.5; O2SAT 100
--- NOTE | 2020-10-20 08:44 | PM.IMHP ---
H&P: HPI History of Present Illness Date/Time: 10/20/20 08:44 Chief Complaint: Left thigh pain Narrative: 85-year-old female who had a right total hip arthroplasty about 5 years ago and a left total hip arthroplasty about 2 years ago has been having issues with left thigh pain for a few weeks. She sees an orthopedic surgeon at [facility]. On October 18 after dialysis after she got into her van she had severe pain of sudden onset and was unable to ambulate without assistance. Because this persisted she came to the emergency room on October 19. She was admitted for pain control. which she is at rest she has minimal discomfort in the left thigh. It is mainly mid proximal with some knee pain. She does have arthritis in her knee. With ambulation she has severe pain. There is no numbness or weakness. No history of fall or other trauma. No fevers chills or sweats. She denied change in bowel or bladder function, shortness of breath, swelling, chest pain, palpitations, syncope or presyncope. Her appetite and energy level have been good. She goes to dialysis on Wednesday and Wednesday. Her toy consultant is Dr. Hatfield. 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ory Family History Father Dialysis complication Diabetes mellitus Sibling Diabetes mellitus Mother Blood clots in brain Social History Social History (Updated 10/20/20 @ 08:51 by Delio Jean MD) Smoking status: Never smoker Alcohol intake: never Substance use: never Substance use type: former substance user Living arrangements: with family Additional living arrangements comments: Lives with sister Occupation/Education: retired Gender identity (if verbalized by the patient): Female Spiritual care concerns: No Meds Home Medications and Allergies Home Medications Medication Instructions Recorded Confirmed Type Melanie-Beltran Rx 300 tablet PO DAILY 07/17/20 10/19/20 History atorvastatin 40 mg PO DAILY 07/17/20 10/19/20 History clopidogrel 75 mg PO DAILY 07/17/20 10/19/20 History colchicine 0.6 mg PO DAILY 07/17/20 10/19/20 History oxycodone-acetaminophen 10 tablet PO QID PRN 07/17/20 10/19/20 History pantoprazole 40 mg PO DAILY 07/17/20 10/19/20 History sevelamer carbonate 800 mg PO BIDWMEAL 07/17/20 10/19/20 History acetaminophen [Tylenol] 500 mg PO QID PRN 10/19/20 10/19/20 History aspirin 81 mg PO DAILY 10/19/20 10/19/20 History carvedilol [Coreg] 3.25 mg PO Q12HR 10/19/20 10/19/20 History docusate sodium [Dulcolax Stool 100 mg PO DAILY 10/19/20 10/19/20 History Softener (dss)] lisinopril 20 mg PO DAILY 10/19/20 10/19/20 History Allergies Allergy/AdvReac Type Severity Reaction Status Date / Time sulfanilamide Allergy Unknown Unknown Verified 10/19/20 23:54 Sulfa (Sulfonamide Allergy Unknown Verified 10/19/20 23:54 Antibiotics) Vital Signs Vital Signs - 24 hr 10/19/20 13:46 10/19/20 14:17 10/19/20 14:34 Temperature 99.3 F Pulse Rate 82 74 68 Respiratory Rate 18 18 Blood Pressure 206/101 H 178/74 H Pulse Oximetry 94 100 10/19/20 14:58 10/19/20 16:00 10/19/20 17:17 Temperature 99.3 F Pulse Rate 62 62 Respiratory Rate 18 18 Blood Pressure 163/70 H 196/85 H Pulse Oximetry 100 100 10/19/20 19:30 10/19/20 22:47 10/19/20 23:16 Temperature 97.7 F Pulse Rate 72 63 72 Respiratory Rate
--- NOTE | 2020-10-20 10:08 | PM.CNNEP ---
Assessment and Plan Assessment and plan (1) End stage renal disease: Code(s): N18.6 - End stage renal disease Status: Acute Assessment and Plan: the patient has end-stage renal disease. She gets dialysis 3 times a week. She is due tomorrow. Blood pressure looks okay. Volume status looks okay. Electrolytes are okay. Will schedule dialysis for tomorrow (2) Periprosthetic fracture around internal prosthetic left hip joint: Qualifiers: Encounter type: subsequent encounter Qualified Code(s): M97.02XD - Periprosthetic fracture around internal prosthetic left hip joint, subsequent encounter Code(s): M97.02XA - Periprosthetic fracture around internal prosthetic left hip joint, initial encounter Status: Acute Assessment and Plan: the patient is getting pain control. (3) Hypertension: Qualifiers: Hypertension type: unspecified Qualified Code(s): I10 - Essential (primary) hypertension Code(s): I10 - Essential (primary) hypertension Status: Acute Assessment and Plan: Blood pressure is under fairly good control. Is a bit high with her pain. (4) Renal osteodystrophy: Code(s): N25.0 - Renal osteodystrophy Status: Acute Assessment and Plan: Will check a phosphorus in the morning (5) Erythropoietin deficiency anemia: Code(s): D63.1 - Anemia in chronic kidney disease Status: Acute Assessment and Plan: hemoglobin is 10.9. Will watch as the hospitalization proceeds History of Present Illness Reason for Consult Consult date: 10/20/20 Chief Complaint Chief complaint: Intractable Pain History of Present Illness Narrative: Alison is a very pleasant 85-year-old lady who has end-stage renal disease on dialysis 3 times a week, anemia, renal osteodystrophy, hypertension, history of congestive heart failure, who came in the hospital because of hip pain. The patient had dialysis on Wednesday. She did well on the machine. When she got up from that treatment she had left hip pain. It grew worse and worse. She spent Wednesday night and pain and so went to the emergency room on Wednesday. She did not fall. She has seen orthopedics lately who did an injection of that hip because of mild pain before that. She was evaluated in the ER and found to have a loose total hip arthroplasty. Patient was admitted for pain control. She is due for dialysis tomorrow. Review of Systems Constitutional: Constitutional: Reports no additional constitutional complaints Eyes: Eyes: Reports no additional eye complaints ENT: Reports system reviewed and no additional complaints, except as documented Cardiovascular: Cardiovascular: Reports no additional cardiovascular complaints Respiratory: Respiratory: Reports no additional respiratory complaints Gastrointestinal: Gastrointestinal: Reports no additional gastrointestinal complaints Genitourinary: Genitourinary: Reports no additional female genitourinary complaints Musculoskeletal: Musculoskeletal: Reports no additional musculoskeletal complaints Integumentary/Breasts: Skin/Breast: Reports system reviewed and no additional complaints, except as docu Neurologic: Reports system reviewed and no additional complaints, except as documented Psychiatric: Psychiatric: Reports no additional psychiatric complaints Endocrine: Endocrine: Reports no additional endocrine complaints PMFSH Past Medical History Medical History (Updated 10/20/20 @ 10:10 by Mamadou Manzanares MD) Acute exacerbation of CHF (congestive heart failure) End stage renal disease End-stage renal disease needing dialysis Erythropoietin deficiency anemia Hypertension 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
[2020-10-20 10:24] VITALS: PULSE 62
[2020-10-20] MEDS: carvediloL 3.125 MG TABLET 3.25 MG PO (10:24)
[2020-10-20] MEDS: ASPIRIN 81 MG ENTERIC TABLET PO (10:24)
[2020-10-20] MEDS: DOCUSATE SODIUM 100 MG CAPSULE PO (10:25)
[2020-10-20] MEDS: ATORVASTATIN 40 MG TABLET PO (10:25)
[2020-10-20] MEDS: VITAMIN B CMPLX/VIT C/FOLIC AC 1 CAPSULE 1 CAP PO (10:25)
[2020-10-20] MEDS: COLCHICINE 0.6 MG TABLET PO (10:26)
[2020-10-20] MEDS: SEVELAMER CARBONATE 800 MG TABLET PO ×2 (10:26→17:46)
[2020-10-20] MEDS: lisinopriL 20 MG TABLET PO (10:26)
[2020-10-20] MEDS: CLOPIDOGREL BISULFATE 75 MG TABLET PO (10:26)
[2020-10-20] MEDS: PANTOPRAZOLE 40 MG TABLET PO (10:26)
[2020-10-20 11:44] LABS: Hepatitis B Surface Antigen Negative (Negative)
--- NOTE | 2020-10-20 12:51 | PCPTNOTE ---
Patient refused physical therapy evaluation at this time stating that her leg hurts to bad. We will continue to follow.
[2020-10-20 14:00] VITALS: BP 152/73; PULSE 64; RESP 16; TEMP 36.1; O2SAT 100
--- NOTE | 2020-10-20 15:51 | PCOTNOTE ---
Patient refused OT evaluation at this time stating that her leg hurts to bad. We will continue to follow
--- NOTE | 2020-10-20 16:12 | PM.CNOR ---
Assessment and Plan Additional Plan I was called about this patient about 30 minutes ago. I have reviewed the images off site as well as the provider notes from her admission. She is well-known to me. She has an extremely long history of being on renal dialysis and she has severe osteoporosis that is associated with this due to renal osteodystrophy. She had a femoral neck fracture of the left hip in September of 2017 which was treated with a cemented bipolar hemiarthroplasty. This was complicated by a minimally displaced fracture of the tip of the greater trochanter that we noted on x-ray at the 2 week follow-up that was not present on the initial x-rays. Again her bone was extremely soft. For this reason, she had a cemented bipolar hemiarthroplasty to treat her femoral neck fracture Then she did well for a period of time until May of 2019 when she presented complaining of some mid thigh pain and we noted evidence of loosening between the cement and the bone with prominent bone cement radiolucency having formed around the entire cement mantle without disruption of the cement Mantle itself. She was referred to Dr. Frausto at [facility] at that time for possible revision. I believe she had infection work at that time. She did not return for further follow-up and she saw me again on June 13, 2020 and new x-rays of the left hip showed that there had been approximately 1 cm of additional subsidence of the cement mantle with expansion and thinning of the femoral shaft cortices at the tip of the cement mantle. She did see Dr. Frausto again approximately 1 month ago and I believe she was advised to use the walker and the decision to treat this nonsurgically was made . She then she presented yesterday To the [facility] with increased thigh pain. The emergency room physician contacted Orthopedics at [facility] and they reviewed the plain x-rays and there did not appear to be any significant change. A CT scan of the left femur was obtained which shows a transverse lucency of the lateral femoral cortex at the level of the distal tip of the stem consistent with a stress fracture there and on the sagittal reconstructions 1 can see that she has lost the entire thickness of the posterior cortex of the femoral shaft posterior to the distal portion of the stem. There is a slight angulation present of the femoral shaft which appears to be a plastic deformation rather than an acute fracture likely the result of remodeling due to insufficiency. This is an impending fracture. I have spoken with Dr. Carney and patient will be made strict nonweightbearing and have the Tashi lift used for transfers. She is on heparin for DVT prophylaxis. She receives dialysis 3 times a week. She has had congestive heart failure as recent as July that responded to dialysis. She is not believed to have and stage heart disease or cardiomyopathy. But, I do not see an echocardiogram being done during that July admission. She did have a negative nuclear medicine perfusion study at that time. Prior to this she has been advised to use the walker but has been allowed to be weight-bearing as tolerated. However, the CT findings now suggest that fracture of the left femur at the level of the at the distal tip of the prosthesis is imminent. I feel that the management options now are either revision to a long-stem prosthesis, or, if she is not felt to be a candidate for this type of surgery, I feel she should not be ambulatory and should use a Tashi lift for transfers as even with assisted transfers, given her deconditioned state, she may accidentally put too much weight on her left leg which may result in catastrophic displaced midshaft femur fracture. I would recommend that the CT scan images be forwarded to Dr. Frausto for his opinion and determination of whether or not he feels that she would be a surgical candidate for revision at this time. History of Present Illness HPI Consult d
--- NOTE | 2020-10-20 16:32 | PC.NURSE ---
call to pharm they did not refill this pts meds in cart
[2020-10-20] MEDS: HEPARIN SODIUM 5,000 UNITS/ML VIAL 5000 UNITS SUB-Q (20:27)
[2020-10-20 21:06] VITALS: PULSE 66
[2020-10-20] MEDS: carvediloL 3.125 MG TABLET PO (21:06)
[2020-10-20 21:55] VITALS: BP 174/68; PULSE 66; RESP 16; TEMP 35.9; O2SAT 100
[2020-10-21] VITALS (17 sets, daily range): BP systolic 147–180; BP diastolic 62–87; PULSE 60–70; RESP 16–18; TEMP 36.1–37; O2SAT 96–100
--- NOTE | 2020-10-21 | ECHO_ITS ---
Patient Info Name: Katharina Hudson Age: 85 years : 1935 Gender: Female Ht: 60 in Wt: 138 lbs BSA: 1.65 m2 HR: 63 bpm BP: 174 / 68 mmHg Heart Rhythm: Sinus Rhythm Technical Quality: Good Exam Date: 10/21/2020 9:06 AM Exam Location: [facility] Pulmonary Patient Status: Inpatient Admit Date: 10/19/2020 Staff Ordering Physician: Delio Jean MD Sample Case Porter: Latanya Douglas RDCS Attending Provider: Delio Jean MD Referring Physician: Miranda NGUYEN; Exam Type: CA echo doppler color flow Study Info Indications I50.9 - Heart failure, unspecified Complete two-dimensional, color flow and Doppler transthoracic echocardiogram is performed. Strain analysis performed. Summary 1. Complete two-dimensional, color flow and Doppler transthoracic echocardiogram is performed. 2. Left ventricular chamber dimension is normal. 3. Left ventricular systolic function is normal, estimated at 55-60%. 4. There is moderately increased left ventricular wall thickness. 5. The left ventricular diastolic function is grade I diastolic dysfunction. 6. Global longitudinal strain is abnormal at -12 %. 7. Right ventricular chamber dimension is mildly enlarged. 8. Left atrial chamber dimension is moderately enlarged. 9. Right atrial chamber dimension is mildly enlarged. 10. There is mild aortic valve stenosis with a peak velocity of 177 cm/s, mean gradient of 7 mmHg, and aortic valve area of 1.8 cm2. 11. There is mild aortic valve regurgitation. 12. There is mild mitral valve regurgitation. 13. There is mild mitral valve calcification. 14. The mitral valve annulus is severely calcified. 15. There is mild to moderate tricuspid valve regurgitation. 16. Severe pulmonary hypertension, estimated pulmonary arterial systolic pressure is 80 mmHg. 17. There is mild pulmonic regurgitation. 18. Strain analysis performed. Left Ventricle Left ventricular chamber dimension is normal. Left ventricular systolic function is normal, estimated at 55-60%. There is moderately increased left ventricular wall thickness. The left ventricular diastolic function is grade I diastolic dysfunction. Global longitudinal strain is abnormal at -12 %. Right Ventricle Right ventricular chamber dimension is mildly enlarged. Right ventricular systolic function is normal. Left Atria Left atrial chamber dimension is moderately enlarged. Right Atria Right atrial chamber dimension is mildly enlarged. Atrial Septum Intact interatrial septum visualized by color flow imaging. Aortic Valve The aortic valve is trileaflet. There is mild aortic valve stenosis with a peak velocity of 177 cm/s, mean gradient of 7 mmHg, and aortic valve area of 1.8 cm2. There is mild aortic valve regurgitation. There is moderate aortic valve calcification. Pulmonic Valve The pulmonic valve is normal. There is no pulmonic valve stenosis. There is mild pulmonic regurgitation. Mitral Valve There is no mitral valve stenosis. There is mild mitral valve regurgitation. There is mild mitral valve calcification. The mitral valve annulus is severely calcified. Tricuspid Valve The tricuspid valve leaflets are normal. There is no significant tricuspid valve stenosis. There is mild to moderate tricuspid valve regurgitation. Severe pulmonary hypertension, estimated pulmonary arterial systolic pressure is 80 mmHg. Pericardium/Pleural The pericardium appears normal. There is trivial pericardial effusion. Inferior V
[2020-10-21 05:46] LABS: Hematocrit 32.7 % (37.0-47.0); Hemoglobin 10.3 g/dL (12.0-15.0); Mean Corpuscular HGB Conc 31.5 g/dl (32-36); Mean Corpuscular Hemoglobin 30.7 pg (26-34); Mean Corpuscular Volume 97.3 fl (80-100); Mean Platelet Volume 10.4 fl (7.4-10.4); Platelet Count Result 136 k/mm3 (150-375); Red Blood Count 3.36 M/mm3 (4.2-5.4); Red Cell Distribution Width 15.6 % (11.5-14.5); White Blood Count 3.3 K/mm3 (4.5-10.0)
[2020-10-21 06:07] LABS: Albumin Level 3.4 g/dL (3.5-5.1); Anion Gap 12 mmol/L (8-16); Blood Urea Nitrogen 44 mg/dL (7-17); Calcium 9.2 mg/dL (8.4-10.2); Carbon Dioxide 32 mmol/L (22-30); Chloride 86 mmol/L (98-107); Estimated CRCL calculation 4 ml/min; Estimated Glomerular Filt Rate 6; Glucose 83 mg/dL (65-105); Phosphorus 6.1 mg/dL (2.5-4.5); Potassium 3.9 mmol/L (3.4-5.0); Sodium 130 mmol/L (137-145)
[2020-10-21] MEDS: MORPHINE SULFATE (*CRX) 4 MG/ML INJ IV PUSH ×3 (06:32→21:38)
[2020-10-21] MEDS: PANTOPRAZOLE 40 MG TABLET PO (09:06)
[2020-10-21] MEDS: SEVELAMER CARBONATE 800 MG TABLET PO ×2 (09:06→15:50)
[2020-10-21] MEDS: VITAMIN B CMPLX/VIT C/FOLIC AC 1 CAPSULE 1 CAP PO (09:06)
--- NOTE | 2020-10-21 09:45 | PC.NURSE ---
pt to dialysis via bed
--- NOTE | 2020-10-21 11:52 | PM.PNNEP ---
Progress Note: A&P Assessment and Plan (1) End stage renal disease: Code(s): N18.6 - End stage renal disease Status: Chronic Assessment and Plan: HD today and continue M/W/F schedule while hospitalized electrolytes, volume status, and clearance acceptable (2) Periprosthetic fracture around internal prosthetic left hip joint: Qualifiers: Encounter type: subsequent encounter Qualified Code(s): M97.02XD - Periprosthetic fracture around internal prosthetic left hip joint, subsequent encounter Code(s): M97.02XA - Periprosthetic fracture around internal prosthetic left hip joint, initial encounter Status: Acute Assessment and Plan: Orthopedics following high risk for surgery (but may not have a choice may need transfer to [facility] for surgery if acceptable candidate (3) Hypertension: Qualifiers: Hypertension type: unspecified Qualified Code(s): I10 - Essential (primary) hypertension Code(s): I10 - Essential (primary) hypertension Status: Acute Assessment and Plan: reasonably control at this time follow trend of hemodynamics (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 Subjective Date/time seen: 10/21/20 11:52 Tolerating dialysis treatment at the time of my visit (seen on HD at ~ 11:48AM); no apparent distress voiced; some issues with AV access that delayed initiation of dialysis treatment; still with significant pain issues in her leg but does not want to take pain medications (says she is fearful that she my get addicted to them). Exam Narrative: Exam Narrative: General: WD/WN female in NAD Heart: normal S1 and S2; no rub Lungs: clear to auscultation Abdomen: soft, nontender, nondistended, positive bowel sounds Extremities: no cyanosis or clubbing; no edema; pain in left leg/hip Skin: warm and dry Objective Data Vital Signs Vital Signs: Vital Signs Temp Pulse Resp BP Pulse Ox 10/21/20 11:45 62 171/86 H 10/21/20 11:30 61 177/86 H 10/21/20 11:15 60 180/82 H 10/21/20 09:55 36.9 C 64 16 158/81 H 10/21/20 06:00 36.1 C L 62 18 161/79 H 100 10/20/20 21:55 35.9 C L 66 16 174/68 H 100 10/20/20 21:06 66 10/20/20 14:00 36.1 C L 64 16 152/73 H 100 Intake/Output Intake/Output: Intake & Output 10/18/20 10/19/20 10/20/20 10/21/20 23:59 23:59 23:59 23:59 Intake Total 1989 370 Output Total 0 Balance 1989 370 Meds/Results Medications: Active Medications Generic Name Dose Route Start Last Admin Trade Name Sidq PRN Reason Stop Dose Admin Acetaminophen 500 mg 10/20/20 08:11 Acetaminophen 500 Mg Tablet PO QID PRN Mild Pain (1-3) Hydrocodone Bitart/Acetaminophen 1 tab 10/19/20 18:37 Hydrocodone/Acetaminophen (*Crx) 5-325 Mg Tablet PO Q4H PRN Pain Rated 4-6 Aspirin 81 mg 10/20/20 09:00 10/20/20 10:24 Aspirin 81 Mg Enteric Tablet PO 11/19/20 09:01 81 mg DAILY CRYSATL Administration Atorvastatin Calcium 40 mg 10/20/20 09:00 10/20/20 10:25 Atorvastatin 40 Mg Tablet PO 40 mg DAILY CRYSTAL Administration Carvedilol 3.125 mg 10/20/20 21:00 10/20/20 21:06 Carvedilol 3.125 Mg Tablet PO 3.125 mg Q12HR CRYSTAL Administration Clopidogrel Bisulfate 75 mg 10/20/20 09:00 10/20/20 10:26 Clopidogrel Bisulfate 75 Mg Tablet PO 75 mg DAILY CRYSTAL Administration Colchicine 0.6 mg 10/20/20 09:00 10/20/20 10:26 Colchicine 0.6 Mg Tablet PO 0.6 mg DAILY CRYTSAL Administration Docusate Sodium 100 mg 10/20/20 09:00 10/20/20 10:25 Docusate Sodium 100 Mg Capsule PO 100 mg VEENA
--- NOTE | 2020-10-21 12:16 | PM.PNORT ---
Progress Note: A&P Additional Plan Pt had echo done today-EF is 55 to 60% also shows severe pulmonary HTN, will have staff send info to [facility] to see if pt is surg canadate. She is certainly very high risk but without surg. pt will not be able to ambulate and fx not likely to heal Subjective Subjective Date/Time Seen: 10/21/20 12:16 Objective Data Vital Signs Vital Signs: Vital Signs - 24 hr 10/20/20 14:00 10/20/20 21:06 10/20/20 21:55 Temperature 36.1 C L 35.9 C L Pulse Rate 64 66 66 Respiratory Rate 16 16 Blood Pressure 152/73 H 174/68 H Pulse Oximetry 100 100 10/21/20 06:00 10/21/20 09:55 10/21/20 11:15 Temperature 36.1 C L 36.9 C Pulse Rate 62 64 60 Respiratory Rate 18 16 Blood Pressure 161/79 H 158/81 H 180/82 H Pulse Oximetry 100 10/21/20 11:30 10/21/20 11:45 Temperature Pulse Rate 61 62 Respiratory Rate Blood Pressure 177/86 H 171/86 H Pulse Oximetry Intake/Output Intake/Output: Intake & Output 10/18/20 10/19/20 10/20/20 10/21/20 23:59 23:59 23:59 23:59 Intake Total 1989 370 Output Total 0 Balance 1989 370 Meds/Results Medications: Active Medications Generic Name Dose Route Start Last Admin Trade Name Freq PRN Reason Stop Dose Admin Acetaminophen 500 mg 10/20/20 08:11 Acetaminophen 500 Mg Tablet PO QID PRN Mild Pain (1-3) Hydrocodone Bitart/Acetaminophen 1 tab 10/19/20 18:37 Hydrocodone/Acetaminophen (*Crx) 5-325 Mg Tablet PO Q4H PRN Pain Rated 4-6 Aspirin 81 mg 10/20/20 09:00 10/20/20 10:24 Aspirin 81 Mg Enteric Tablet PO 11/19/20 09:01 81 mg DAILY [facility] Administration Atorvastatin Calcium 40 mg 10/20/20 09:00 10/20/20 10:25 Atorvastatin 40 Mg Tablet PO 40 mg DAILY [facility] Administration Carvedilol 3.125 mg 10/20/20 21:00 10/20/20 21:06 Carvedilol 3.125 Mg Tablet PO 3.125 mg Q12HR [facility] Administration Clopidogrel Bisulfate 75 mg 10/20/20 09:00 10/20/20 10:26 Clopidogrel Bisulfate 75 Mg Tablet PO 75 mg DAILY [facility] Administration Colchicine 0.6 mg 10/20/20 09:00 10/20/20 10:26 Colchicine 0.6 Mg Tablet PO 0.6 mg DAILY [facility] Administration Docusate Sodium 100 mg 10/20/20 09:00 10/20/20 10:25 Docusate Sodium 100 Mg Capsule PO 100 mg DAILY [facility] Administration Epoetin Allan-epbx 10,000 units 10/21/20 10:05 Epoetin Allan-Epbx 10,000 Units/Ml Vial IV PUSH MOWEFR [facility] Heparin Sodium (Porcine) 5,000 units 10/20/20 21:00 10/20/20 20:27 Heparin Sodium 5,000 Units/Ml Vial SUB-Q 5,000 units Q12HR [facility] Administration Albumin Human 50 mls @ 999 mls/hr 10/21/20 07:00 Albutein IVPB 11/20/20 07:01 Q10M PRN HYPOTENSION Lisinopril 20 mg 10/20/20 09:00 10/20/20 10:26 Lisinopril 20 Mg Tablet PO 20 mg DAILY [facility] Administration Morphine Sulfate 4 mg 10/19/20 18:37 10/21/20 06:32 Morphine Sulfate (*Crx) 4 Mg/Ml Inj IV PUSH 4 mg Q2H PRN Administration Pain Rated 7-10 Ondansetron HCl 4 mg 10/19/20 18:37 Ondansetron Inj 4 Mg/2 Ml Vial IV PUSH Q4H PRN Nausea Pantoprazole Sodium 40 mg 10/20/20 09:00 10/21/20 09:06 Pantoprazole 40 Mg Tablet PO 40 mg DAILY [facility] Administration Sevelamer Carbonate 800 mg 10/20/20 08:15 10/21/20 09:06 Sevelamer Carbonate 800 Mg Tablet PO 800 mg BIDWM [facility] Administration Vitamin B Complex/Folic Acid 1 cap 10/20/20 09:00 10/21/20 09:06 Vitamin B Cmplx/Vit C/Folic Ac 1 Capsule PO 11/19/20 09:01 1 cap DAILY [facility] Administration Radiology Results: ITS Impressions Knee X-Ray 10/19/20 15:27 Impression: 1: Moderate osteoarthritis of the left knee. Hip/Pelvis X-Ray 10/19/20 15:30 Impression: 1: Lucency at the cement bone interface of the left femoral prosthesis, suspicious for loosening. No fracture identified. ADDENDUM: 10/19/20 5554 Correction: There is a possible nondisplaced fracture of the femoral diaphysis just distal to the prosthesis. Co
--- NOTE | 2020-10-21 14:50 | PCOTNOTE ---
Awaiting orthopedic consult from [facility] for potential surgery. Will attempt OT evaluation when medically appropriate.
--- NOTE | 2020-10-21 15:20 | PC.NURSE ---
pt returned to room from dialysis
--- NOTE | 2020-10-21 15:26 | PM.IMPN ---
Progress Note: A&P Assessment and Plan (1) Periprosthetic fracture around internal prosthetic left hip joint: Qualifiers: Encounter type: subsequent encounter Qualified Code(s): M97.02XD - Periprosthetic fracture around internal prosthetic left hip joint, subsequent encounter Code(s): M97.02XA - Periprosthetic fracture around internal prosthetic left hip joint, initial encounter Status: Acute Assessment and Plan: CT 1. Left hip bipolar hemiarthroplasty with extensive lucencies around the femoral stem, consistent with loosening versus infection, and transverse periprosthetic fracture near the tip of the femoral stem. 2. Severe left knee osteoarthritis. patient seen by orthopedics. completed non Weight-bearing at this time and bedrest orthopedics working on to transfer patient to [facility] and for surgery echocardiogram was done today DVT prophylaxis pain control (2) End stage renal disease: Code(s): N18.6 - End stage renal disease Status: Acute Assessment and Plan: nephrology consult for hemodialysis and patient had hemodialysis session today electrolytes acceptable on room air (3) Hypertension: Qualifiers: Hypertension type: unspecified Qualified Code(s): I10 - Essential (primary) hypertension Code(s): I10 - Essential (primary) hypertension Status: Acute Assessment and Plan: blood pressure reviewed today continue home regimen Coreg and lisinopril (4) Renal osteodystrophy: Code(s): N25.0 - Renal osteodystrophy Status: Acute Assessment and Plan: continue phosphate binders (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 pain is 9/10, Achy and in left leg, worse with movement and palpation, better with lying still, no radiation Review of Systems Review of Systems: All systems reviewed & are unremarkable except as noted in HPI and below Exam Narrative: Exam Narrative: General: Pt is alert awake and in NAD Lungs/Chest: Trachea central Clear BS B/L, No crackles or wheezing. Cardiac: RRR. Normal S1 S2. No murmurs Circulation: Pedal pulses are intact and symmetrical. Abdomen: Normal bowel sounds.. Soft. NT. ND. Extremities: No clubbing, cyanosis or edema. Warm Left upper extremity AV fistula, tenderness on lateral aspect of left leg, left dorsalis pedis pulse present : Adame in place Neurologic: Follows commands. Moves all 4 extremities PERRL Skin: No Rash Objective Data Vital Signs Vital Signs: Vital Signs - 24 hr 10/20/20 21:06 10/20/20 21:55 10/21/20 06:00 Temperature 35.9 C L 36.1 C L Pulse Rate 66 66 62 Respiratory Rate 16 18 Blood Pressure 174/68 H 161/79 H Pulse Oximetry 100 100 10/21/20 09:55 10/21/20 11:15 10/21/20 11:30 Temperature 36.9 C Pulse Rate 64 60 61 Respiratory Rate 16 Blood Pressure 158/81 H 180/82 H 177/86 H Pulse Oximetry 10/21/20 11:45 10/21/20 12:00 10/21/20 12:15 Temperature Pulse Rate 62 61 64 Respiratory Rate Blood Pressure 171/86 H 166/84 H 158/86 H Pulse Oximetry 10/21/20 12:30 10/21/20 12:45 10/21/20 13:00 Temperature Pulse Rate 67 61 62 Respiratory Rate Blood Pressure 168/87 H 177/79 H 148/73 H Pulse Oximetry Intake/Output Intake/Output: Intake & Output 10/18/20 10/19/20 10/20/20 10/21/20 23:59 23:59 23:59 23:59 Intake Total 1989 370 Output Total 0 Balance 1989 370 Meds/Results Medications: Active Medications Generic Name Dose Route Start Last Admin Trade Name Sidq PRN Reason Stop Dose Admin Acetaminophen 500 mg 10/20/20 08:11 Acetamin
[2020-10-21] MEDS: ASPIRIN 81 MG ENTERIC TABLET PO (15:50)
[2020-10-21] MEDS: CLOPIDOGREL BISULFATE 75 MG TABLET PO (15:50)
[2020-10-21] MEDS: COLCHICINE 0.6 MG TABLET PO (15:50)
[2020-10-21] MEDS: ATORVASTATIN 40 MG TABLET PO (15:51)
[2020-10-21] MEDS: carvediloL 3.125 MG TABLET PO ×2 (15:51→21:28)
[2020-10-21] MEDS: DOCUSATE SODIUM 100 MG CAPSULE PO (15:51)
[2020-10-21] MEDS: lisinopriL 20 MG TABLET PO (15:52)
[2020-10-21] MEDS: HEPARIN SODIUM 5,000 UNITS/ML VIAL 5000 UNITS SUB-Q (21:27)
[2020-10-22] VITALS (7 sets, daily range): BP systolic 144–158; BP diastolic 61–82; PULSE 55–67; RESP 16–21; TEMP 35.9–36.3; O2SAT 96–100
--- NOTE | 2020-10-22 06:20 | PM.PNORT ---
Progress Note: A&P Additional Plan Spoke with nurse yesterday. Information was to be sent to [place] to [facility] for consideration revision patient's bipolar hemiarthroplasty. At this point we are awaiting word from them. Patient's overall pain is mild while she is bed. She will continue be [facility] Subjective Subjective Date/Time Seen: 10/22/20 06:20 Objective Data Vital Signs Vital Signs: Vital Signs - 24 hr 10/21/20 09:55 10/21/20 11:15 10/21/20 11:30 Temperature 36.9 C Pulse Rate 64 60 61 Respiratory Rate 16 Blood Pressure 158/81 H 180/82 H 177/86 H Pulse Oximetry 10/21/20 11:45 10/21/20 12:00 10/21/20 12:15 Temperature Pulse Rate 62 61 64 Respiratory Rate Blood Pressure 171/86 H 166/84 H 158/86 H Pulse Oximetry 10/21/20 12:30 10/21/20 12:45 10/21/20 13:00 Temperature Pulse Rate 67 61 62 Respiratory Rate Blood Pressure 168/87 H 177/79 H 148/73 H Pulse Oximetry 10/21/20 13:15 10/21/20 13:30 10/21/20 13:45 Temperature Pulse Rate 62 61 63 Respiratory Rate Blood Pressure 150/71 H 170/74 H 162/79 H Pulse Oximetry 10/21/20 14:45 10/21/20 15:51 10/21/20 21:28 Temperature 36.8 C Pulse Rate 64 70 60 Respiratory Rate 16 Blood Pressure 158/81 H Pulse Oximetry 10/21/20 22:00 Temperature 36.8 C Pulse Rate 61 Respiratory Rate 18 Blood Pressure 147/62 H Pulse Oximetry 96 Intake/Output Intake/Output: Intake & Output 10/19/20 10/20/20 10/21/20 10/22/20 23:59 23:59 23:59 23:59 Intake Total 1989 610 Output Total 0 1267 Balance 1989 Meds/Results Medications: Active Medications Generic Name Dose Route Start Last Admin Trade Name Freq PRN Reason Stop Dose Admin Acetaminophen 500 mg 10/20/20 08:11 Acetaminophen 500 Mg Tablet PO QID PRN Mild Pain (1-3) Hydrocodone Bitart/Acetaminophen 1 tab 10/19/20 18:37 Hydrocodone/Acetaminophen (*Crx) 5-325 Mg Tablet PO Q4H PRN Pain Rated 4-6 Aspirin 81 mg 10/20/20 09:00 10/21/20 15:50 Aspirin 81 Mg Enteric Tablet PO 11/19/20 09:01 81 mg DAILY [facility] Administration Atorvastatin Calcium 40 mg 10/20/20 09:00 10/21/20 15:51 Atorvastatin 40 Mg Tablet PO 40 mg DAILY [facility] Administration Carvedilol 3.125 mg 10/20/20 21:00 10/21/20 21:28 Carvedilol 3.125 Mg Tablet PO 3.125 mg Q12HR [facility] Administration Clopidogrel Bisulfate 75 mg 10/20/20 09:00 10/21/20 15:50 Clopidogrel Bisulfate 75 Mg Tablet PO 75 mg DAILY [facility] Administration Colchicine 0.6 mg 10/20/20 09:00 10/21/20 15:50 Colchicine 0.6 Mg Tablet PO 0.6 mg DAILY [facility] Administration Docusate Sodium 100 mg 10/20/20 09:00 10/21/20 15:51 Docusate Sodium 100 Mg Capsule PO 100 mg DAILY [facility] Administration Epoetin Allan-epbx 10,000 units 10/21/20 10:05 10/21/20 16:50 Epoetin Allan-Epbx 10,000 Units/Ml Vial IV PUSH Not Given MOWEFR [facility] Heparin Sodium (Porcine) 5,000 units 10/20/20 21:00 10/21/20 21:27 Heparin Sodium 5,000 Units/Ml Vial SUB-Q 5,000 units Q12HR [facility] Administration Albumin Human 50 mls @ 999 mls/hr 10/21/20 07:00 Albutein IVPB 11/20/20 07:01 Q10M PRN HYPOTENSION Lisinopril 20 mg 10/20/20 09:00 10/21/20 15:52 Lisinopril 20 Mg Tablet PO 20 mg DAILY [facility] Administration Morphine Sulfate 4 mg 10/19/20 18:37 10/21/20 21:38 Morphine Sulfate (*Crx) 4 Mg/Ml Inj IV PUSH 4 mg Q2H PRN Administration Pain Rated 7-10 Ondansetron HCl 4 mg 10/19/20 18:37 Ondansetron Inj 4 Mg/2 Ml Vial IV PUSH Q4H PRN Nausea Pantoprazole Sodium 40 mg 10/20/20 09:00 10/21/20 09:06 Pantoprazole 40 Mg Tablet PO 40 mg DAILY [facility] Administration Sevelamer Carbonate 800 mg 10/20/20 08:15 10/21/20 15:50 Sevelamer Carbonate 800 Mg Tablet PO 800 mg BIDWM [facility] Administration Vitamin B Complex/Folic Acid 1 cap 10/20/20 09:00 10/21/20 09:06 Vitamin B Cmplx/Vit C/Folic Ac 1
[2020-10-22] MEDS: DOCUSATE SODIUM 100 MG CAPSULE PO (08:42)
[2020-10-22] MEDS: SEVELAMER CARBONATE 800 MG TABLET PO ×2 (08:42→17:23)
[2020-10-22] MEDS: CLOPIDOGREL BISULFATE 75 MG TABLET PO (08:42)
[2020-10-22] MEDS: lisinopriL 20 MG TABLET PO (08:42)
[2020-10-22] MEDS: PANTOPRAZOLE 40 MG TABLET PO (08:42)
[2020-10-22] MEDS: ATORVASTATIN 40 MG TABLET PO (08:42)
[2020-10-22] MEDS: VITAMIN B CMPLX/VIT C/FOLIC AC 1 CAPSULE 1 CAP PO (08:42)
[2020-10-22] MEDS: COLCHICINE 0.6 MG TABLET PO (08:43)
[2020-10-22] MEDS: carvediloL 3.125 MG TABLET PO ×2 (08:43→20:13)
[2020-10-22] MEDS: HEPARIN SODIUM 5,000 UNITS/ML VIAL 5000 UNITS SUB-Q ×2 (08:43→20:12)
[2020-10-22] MEDS: ASPIRIN 81 MG ENTERIC TABLET PO (08:43)
[2020-10-22] MEDS: HYDROcodone/acetaminophen (*CRX) 5-325 MG TABLET 1 TAB PO (08:45)
--- NOTE | 2020-10-22 09:33 | PCPTNOTE ---
Spoke w/ RN. Awaiting Ortho consult from [facility] for possible surgery. Will follow.
--- NOTE | 2020-10-22 10:47 | PM.PNNEP ---
Progress Note: A&P Assessment and Plan (1) End stage renal disease: Code(s): N18.6 - End stage renal disease Status: Chronic Assessment and Plan: HD tomorrow and continue M/W/F schedule while hospitalized electrolytes, volume status, and clearance acceptable (2) Periprosthetic fracture around internal prosthetic left hip joint: Qualifiers: Encounter type: subsequent encounter Qualified Code(s): M97.02XD - Periprosthetic fracture around internal prosthetic left hip joint, subsequent encounter Code(s): M97.02XA - Periprosthetic fracture around internal prosthetic left hip joint, initial encounter Status: Acute Assessment and Plan: Orthopedics following high risk for surgery (but may not have a choice) may need transfer to [facility] for surgery if acceptable candidate (3) Hypertension: Qualifiers: Hypertension type: unspecified Qualified Code(s): I10 - Essential (primary) hypertension Code(s): I10 - Essential (primary) hypertension Status: Acute Assessment and Plan: reasonably control at this time follow trend of hemodynamics (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 Subjective Date/time seen: 10/22/20 10:47 Tolerated dialysis yesterday without any issues or problems; pain is controlled when she remains still but any type of movement will results in significant discomfort; awaiting to see if [facility] will take in transfer for possible surgical intervention; no issues/events overnight or earlier this AM. Exam Narrative: Exam Narrative: General: WD/WN female in NAD Heart: normal S1 and S2; no rub Lungs: clear to auscultation Abdomen: soft, nontender, nondistended, positive bowel sounds Extremities: no cyanosis or clubbing; no edema; pain in left leg/hip Skin: warm and intact Objective Data Vital Signs Vital Signs: Vital Signs Temp Pulse Resp BP Pulse Ox 10/22/20 08:45 96 10/22/20 08:43 67 10/22/20 06:00 36.3 C L 65 21 H 152/69 H 100 10/21/20 22:00 36.8 C 61 18 147/62 H 96 10/21/20 21:28 60 10/21/20 15:51 70 10/21/20 14:45 36.8 C 64 16 158/81 H 10/21/20 13:45 63 162/79 H 10/21/20 13:30 61 170/74 H 10/21/20 13:15 62 150/71 H 10/21/20 13:00 62 148/73 H 10/21/20 12:45 61 177/79 H 10/21/20 12:30 67 168/87 H 10/21/20 12:15 64 158/86 H 10/21/20 12:00 61 166/84 H Intake/Output Intake/Output: Intake & Output 10/19/20 10/20/20 10/21/20 10/22/20 23:59 23:59 23:59 23:59 Intake Total 1989 610 760 Output Total 0 1267 Balance 1989 -659 760 Meds/Results Medications: Active Medications Generic Name Dose Route Start Last Admin Trade Name Mickey PRN Reason Stop Dose Admin Acetaminophen 500 mg 10/20/20 08:11 Acetaminophen 500 Mg Tablet PO QID PRN Mild Pain (1-3) Hydrocodone Bitart/Acetaminophen 1 tab 10/19/20 18:37 10/22/20 08:45 Hydrocodone/Acetaminophen (*Crx) 5-325 Mg Tablet PO 1 tab Q4H PRN Administration Pain Rated 4-6 Aspirin 81 mg 10/20/20 09:00 10/22/20 08:43 Aspirin 81 Mg Enteric Tablet PO 11/19/20 09:01 81 mg DAILY [facility] Administration Atorvastatin Calcium 40 mg 10/20/20 09:00 10/22/20 08:42 Atorvastatin 40 Mg Tablet PO 40 mg DAILY [facility] Administration Carvedilol 3.125 mg 10/20/20 21:00 10/22/20 08:43 Carvedilol 3.125 Mg Tablet PO 3.125 mg Q12HR [facility] Administration Clopidogrel Bisulfate 75 mg 10/20/20 09:00 10/22/20 08:42 Clopidogrel Bisulfate 75 Mg Tablet PO 75 mg DAILY [facility] Administration Colchicine 0.6
--- NOTE | 2020-10-22 15:18 | PM.IMPN ---
Progress Note: A&P Assessment and Plan (1) Intractable pain: Code(s): R52 - Pain, unspecified Status: Acute Assessment and Plan: analgesics physical therapy would likely benefit from correction rehab. We are awaiting response from [facility] in [place] for transfer. The patient was seen by Orthopedics here and has since the information to [facility]. (2) Periprosthetic fracture around internal prosthetic left hip joint: Qualifiers: Encounter type: subsequent encounter Qualified Code(s): M97.02XD - Periprosthetic fracture around internal prosthetic left hip joint, subsequent encounter Code(s): M97.02XA - Periprosthetic fracture around internal prosthetic left hip joint, initial encounter Status: Acute Assessment and Plan: Left hip bipolar hemiarthroplasty with extensive lucencies around the femoral stem, consistent with loosening versus infection, and transverse periprosthetic fracture near the tip of the femoral stem. 2. Severe left knee osteoarthritis. Awaiting return call from [facility] For transfer. (3) End-stage renal disease needing dialysis: Code(s): N18.6 - End stage renal disease; Z99.2 - Dependence on renal dialysis Status: Acute Assessment and Plan: nephrology consultation for dialysis management Patient has dialysis on Wednesday and Wednesday. 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 Status: Acute Assessment and Plan: stable from previously continue with retacrit (5) Renal osteodystrophy: Code(s): N25.0 - Renal osteodystrophy Status: Acute Assessment and Plan: continue phosphate binders (6) Hypertension: Qualifiers: Hypertension type: unspecified Qualified Code(s): I10 - Essential (primary) hypertension Code(s): I10 - Essential (primary) hypertension Status: Acute Assessment and Plan: blood pressure reviewed today continue home regimen Continue with Coreg and lisinopril Subjective Date/time seen: 10/22/20 15:18Thipura is a 85-year-old female patient who had a right total hip arthroplasty 5 years ago and then a left total hip arthroplasty about 2 years ago. The patient sees an orthopedic surgeon at [facility]. She has end-stage renal disease and has dialysis on Wednesday. The patient was admitted for pain control. She had minimal discomfort to left thigh. With ambulation she has severe pain to that left thigh. A CT of the left femur was read as the followingLeft hip bipolar hemiarthroplasty with extensive lucencies around the femoral stem, consistent with loosening versus infection, and transverse periprosthetic fracture near the tip of the femoral stem. 2. Severe left knee osteoarthritis. orthopedic here saw the patient and called [facility] for transfer to [facility] in [place]. The information was sent to [facility] for revision of patient's bipolar hemo arthroplasty. The surgery is unable to be performed here. The patient is being lifted by [facility]. We are awaiting for [facility] to respond if the patient will be transferred there and have surgery. The patient stated that she does not have any discomfort while she is laying still but when she moves at all she does have severe pain. Review of Systems Review of Systems: All systems reviewed & are unremarkable except as noted in HPI and below Constitutional: Constitutional: Reports as per HPI and Reports no additional constitutional complaints Eyes: Eyes: Reports as per HPI and Reports no additional eye complaints ENT: Reports system reviewed and no additional complaints, except as documented and Reports Normal hearing present Cardiovascular: Cardiovascular: Reports no additional cardiovascular complaints Respiratory: Respiratory: Reports no additional respira
[2020-10-22] MEDS: MORPHINE SULFATE (*CRX) 4 MG/ML INJ IV PUSH (17:23)
[2020-10-23] VITALS (24 sets, daily range): BP systolic 150–197; BP diastolic 54–92; PULSE 60–84; RESP 16–21; TEMP 35.8–36.8; O2SAT 91–100
[2020-10-23] MEDS: MORPHINE SULFATE (*CRX) 4 MG/ML INJ IV PUSH ×2 (00:58→06:52)
[2020-10-23] MEDS: ATORVASTATIN 40 MG TABLET PO (08:21)
[2020-10-23] MEDS: PANTOPRAZOLE 40 MG TABLET PO (08:21)
[2020-10-23] MEDS: VITAMIN B CMPLX/VIT C/FOLIC AC 1 CAPSULE 1 CAP PO (08:21)
[2020-10-23] MEDS: lisinopriL 20 MG TABLET PO (08:21)
[2020-10-23] MEDS: SEVELAMER CARBONATE 800 MG TABLET PO ×2 (08:21→19:04)
[2020-10-23] MEDS: DOCUSATE SODIUM 100 MG CAPSULE PO (08:21)
[2020-10-23] MEDS: ASPIRIN 81 MG ENTERIC TABLET PO (08:21)
[2020-10-23] MEDS: carvediloL 3.125 MG TABLET PO ×2 (08:21→20:23)
[2020-10-23] MEDS: CLOPIDOGREL BISULFATE 75 MG TABLET PO (08:21)
[2020-10-23] MEDS: COLCHICINE 0.6 MG TABLET PO (08:22)
[2020-10-23] MEDS: HEPARIN SODIUM 5,000 UNITS/ML VIAL 5000 UNITS SUB-Q ×2 (08:22→20:25)
[2020-10-23] MEDS: polyethylene glycoL 3350 17 GM POWD.PACK PO (12:19)
[2020-10-23] MEDS: BISACODYL 10 MG SUPPOSITORY RECTAL (12:19)
--- NOTE | 2020-10-23 14:54 | PC.NURSE ---
Patient to dialysis via bed.
[2020-10-23] MEDS: EPOETIN ALFA-EPBX 10,000 UNITS/ML VIAL 10000 UNITS IV PUSH (16:01)
[2020-10-23] MEDS: SODIUM CHLORIDE 0.9% IV 1,000 ML 999 ML IV CONT (16:02)
--- NOTE | 2020-10-23 16:50 | PM.IMPN ---
Progress Note: A&P Assessment and Plan (1) Intractable pain: Code(s): R52 - Pain, unspecified Status: Acute Assessment and Plan: PATIENT SURGERY [facility] HAS BEEN SCHEDULED FOR NEXT WEEK WEDNESDAY SUPPORTIVE CARE PAIN MANAGEMENT analgesics physical therapy would likely benefit from halfway rehab. We are awaiting response from [facility] in [place] for transfer. The patient was seen by Orthopedics here and has since the information to [facility]. (2) Periprosthetic fracture around internal prosthetic left hip joint: Qualifiers: Encounter type: subsequent encounter Qualified Code(s): M97.02XD - Periprosthetic fracture around internal prosthetic left hip joint, subsequent encounter Code(s): M97.02XA - Periprosthetic fracture around internal prosthetic left hip joint, initial encounter Status: Acute Assessment and Plan: Left hip bipolar hemiarthroplasty with extensive lucencies around the femoral stem, consistent with loosening versus infection, and transverse periprosthetic fracture near the tip of the femoral stem. 2. Severe left knee osteoarthritis. Awaiting return call from [facility] For transfer. (3) End-stage renal disease needing dialysis: Code(s): N18.6 - End stage renal disease; Z99.2 - Dependence on renal dialysis Status: Acute Assessment and Plan: CONTINUE TO MONITOR nephrology consultation for dialysis management Patient has dialysis on Wednesday and Wednesday. 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 Status: Acute Assessment and Plan: stable from previously continue with retacrit (5) Renal osteodystrophy: Code(s): N25.0 - Renal osteodystrophy Status: Acute Assessment and Plan: continue phosphate binders (6) Hypertension: Qualifiers: Hypertension type: unspecified Qualified Code(s): I10 - Essential (primary) hypertension Code(s): I10 - Essential (primary) hypertension Status: Acute Assessment and Plan: CONTINUE TO MONITOR blood pressure reviewed today continue home regimen Continue with Coreg and lisinopril Subjective Date/time seen: 10/23/20 16:50 I FEEL WELL Review of Systems Review of Systems: All systems reviewed & are unremarkable except as noted in HPI and below Constitutional: Constitutional: Reports as per HPI and Reports no additional constitutional complaints Eyes: Eyes: Reports as per HPI and Reports no additional eye complaints ENT: Reports system reviewed and no additional complaints, except as documented and Reports Normal hearing present Cardiovascular: Cardiovascular: Reports no additional cardiovascular complaints Respiratory: Respiratory: Reports no additional respiratory complaints and Reports no additional respiratory complaints Gastrointestinal: Gastrointestinal: Reports as per HPI and Reports no additional gastrointestinal complaints Musculoskeletal: Musculoskeletal: Reports no additional musculoskeletal complaints Integumentary/Breasts: Skin/Breast: Reports system reviewed and no additional complaints, except as docu and Reports as per HPI Neurologic: Reports system reviewed and no additional complaints, except as documented, Reports as per HPI and Reports Normal hearing present Psychiatric: Psychiatric: Reports no additional psychiatric complaints and Reports as per HPI Endocrine: Endocrine: Reports no additional endocrine complaints Hematologic/Lymphatic: Hematologic/Lymphatic: Reports no additional hematologic/lymphatic complaints Allergic/Immunologic: Allergic/Immunologic: Reports no additional allergic/immunologic complaints Exam Narrative: Exam Narrative: LAYING IN BED Const: General: cooperative, comfortable, no acute distress, well developed, alert, awake, 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
--- NOTE | 2020-10-23 17:15 | PM.PNNEP ---
Progress Note: A&P Assessment and Plan (1) End stage renal disease: Code(s): N18.6 - End stage renal disease Status: Chronic Assessment and Plan: HD today and continue M/W/F schedule while hospitalized electrolytes, volume status, and clearance acceptable (2) Periprosthetic fracture around internal prosthetic left hip joint: Qualifiers: Encounter type: subsequent encounter Qualified Code(s): M97.02XD - Periprosthetic fracture around internal prosthetic left hip joint, subsequent encounter Code(s): M97.02XA - Periprosthetic fracture around internal prosthetic left hip joint, initial encounter Status: Acute Assessment and Plan: Orthopedics following high risk for surgery (but no other real options available) to be transferred to [facility] for surgery (3) Hypertension: Qualifiers: Hypertension type: unspecified Qualified Code(s): I10 - Essential (primary) hypertension Code(s): I10 - Essential (primary) hypertension Status: Acute Assessment and Plan: reasonably control at this time follow trend of hemodynamics (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 Subjective Date/time seen: 10/23/20 17:15 Tolerating dialysis at the time of my visit (seen on HD at ~ 5:00pm); pain stable with laying still in bed; accepted to [facility] for surgery but unclear when transfer is going to happen; no other acute issues/problems at this time; remains in good spirits. Exam Narrative: Exam Narrative: General: WD/WN female in NAD Heart: normal S1 and S2; no rub Lungs: clear to auscultation Abdomen: soft, nontender, nondistended, positive bowel sounds Extremities: no cyanosis or clubbing; no edema; pain in left leg/hip with movement Skin: no rash or nodules Objective Data Vital Signs Vital Signs: Vital Signs Temp Pulse Resp BP Pulse Ox 10/23/20 16:00 63 172/71 H 10/23/20 15:45 63 181/81 H 10/23/20 15:30 68 156/72 H 10/23/20 15:15 61 168/78 H 10/23/20 15:00 61 169/83 H 10/23/20 14:50 36.8 C 66 18 161/92 H 10/23/20 14:10 36.6 C 61 18 177/81 H 100 10/23/20 08:25 95 10/23/20 08:21 64 10/23/20 06:00 36.7 C 64 21 H 150/54 H 100 10/22/20 22:00 36.3 C L 62 21 H 158/82 H 100 10/22/20 20:13 55 L 10/22/20 20:00 97 Intake/Output Intake/Output: Intake & Output 10/20/20 10/21/20 10/22/20 10/23/20 23:59 23:59 23:59 23:59 Intake Total 4139 613 5791 860 Output Total 0 1267 Balance 1989 -657 1420 860 Meds/Results Medications: Active Medications Generic Name Dose Route Start Last Admin Trade Name Mickey PRN Reason Stop Dose Admin Acetaminophen 500 mg 10/20/20 08:11 Acetaminophen 500 Mg Tablet PO QID PRN Mild Pain (1-3) Hydrocodone Bitart/Acetaminophen 1 tab 10/19/20 18:37 10/22/20 08:45 Hydrocodone/Acetaminophen (*Crx) 5-325 Mg Tablet PO 1 tab Q4H PRN Administration Pain Rated 4-6 Aspirin 81 mg 10/20/20 09:00 10/23/20 08:21 Aspirin 81 Mg Enteric Tablet PO 11/19/20 09:01 81 mg DAILY CRYSTAL Administration Atorvastatin Calcium 40 mg 10/20/20 09:00 10/23/20 08:21 Atorvastatin 40 Mg Tablet PO 40 mg DAILY CRYSTAL Administration Carvedilol 3.125 mg 10/20/20 21:00 10/23/20 08:21 Carvedilol 3.125 Mg Tablet PO 3.125 mg Q12HR CRYSTAL Administration Clopidogrel Bisulfate 75 mg 10/20/20 09:00 10/23/20 08:21 Clopidogrel Bisulfate 75 Mg Tablet PO 75 mg DAILY CRYSTAL Administration Colchicine 0.6 mg 10/20/20 09:00 10/23/20 08:22 Colchicine 0.6 Mg Tablet PO 0.6 mg VEENA
--- NOTE | 2020-10-23 19:02 | PC.NURSE ---
Patient returned to room from dialysis
[2020-10-23] MEDS: HYDROcodone/acetaminophen (*CRX) 5-325 MG TABLET 1 TAB PO (20:24)
[2020-10-24] VITALS (7 sets, daily range): BP systolic 154–165; BP diastolic 63–72; PULSE 63–80; RESP 18; TEMP 36.4–36.9; O2SAT 93–100
--- NOTE | 2020-10-24 07:40 | PM.PNORT ---
Progress Note: A&P Additional Plan plans are being made for transfer to [facility] for probable left bipolar hemiarthroplasty revision next week to address the insufficiency mid shaft fracture at the distal tip of the femoral component due to severe osteolysis superimposed on severe renal osteodystrophy. Subjective Subjective Date/Time Seen: 10/24/20 07:40 Objective Data Vital Signs Vital Signs: Vital Signs - 24 hr 10/23/20 08:21 10/23/20 08:25 10/23/20 14:10 Temperature 36.6 C Pulse Rate 64 61 Respiratory Rate 18 Blood Pressure 177/81 H Pulse Oximetry 95 100 10/23/20 14:50 10/23/20 15:00 10/23/20 15:15 Temperature 36.8 C Pulse Rate 66 61 61 Respiratory Rate 18 Blood Pressure 161/92 H 169/83 H 168/78 H Pulse Oximetry 10/23/20 15:30 10/23/20 15:45 10/23/20 16:00 Temperature Pulse Rate 68 63 63 Respiratory Rate Blood Pressure 156/72 H 181/81 H 172/71 H Pulse Oximetry 10/23/20 16:15 10/23/20 16:30 10/23/20 16:45 Temperature Pulse Rate 66 63 60 Respiratory Rate Blood Pressure 167/77 H 158/74 H 157/72 H Pulse Oximetry 10/23/20 17:00 10/23/20 17:15 10/23/20 17:30 Temperature Pulse Rate 76 66 64 Respiratory Rate Blood Pressure 168/88 H 165/80 H 168/76 H Pulse Oximetry 10/23/20 17:45 10/23/20 18:00 10/23/20 18:15 Temperature Pulse Rate 63 63 62 Respiratory Rate Blood Pressure 181/82 H 179/80 H 157/76 H Pulse Oximetry 10/23/20 18:31 10/23/20 18:43 10/23/20 20:00 Temperature 36.7 C Pulse Rate 74 74 Respiratory Rate 16 Blood Pressure 197/92 H 181/85 H Pulse Oximetry 91 10/23/20 20:23 10/23/20 21:59 10/24/20 05:53 Temperature 36.6 C 36.4 C L Pulse Rate 70 84 68 Respiratory Rate 16 18 Blood Pressure 150/60 H 165/65 H Pulse Oximetry 91 100 Intake/Output Intake/Output: Intake & Output 10/21/20 10/22/20 10/23/20 10/24/20 23:59 23:59 23:59 23:59 Intake Total 610 1420 860 200 Output Total 1267 2000 0 Balance -657 1420 -1140 200 Meds/Results Medications: Active Medications Generic Name Dose Route Start Last Admin Trade Name Freq PRN Reason Stop Dose Admin Acetaminophen 500 mg 10/20/20 08:11 Acetaminophen 500 Mg Tablet PO QID PRN Mild Pain (1-3) Hydrocodone Bitart/Acetaminophen 1 tab 10/19/20 18:37 10/23/20 20:24 Hydrocodone/Acetaminophen (*Crx) 5-325 Mg Tablet PO 1 tab Q4H PRN Administration Pain Rated 4-6 Aspirin 81 mg 10/20/20 09:00 10/23/20 08:21 Aspirin 81 Mg Enteric Tablet PO 11/19/20 09:01 81 mg DAILY CRYSTAL Administration Atorvastatin Calcium 40 mg 10/20/20 09:00 10/23/20 08:21 Atorvastatin 40 Mg Tablet PO 40 mg DAILY CRYSTAL Administration Carvedilol 3.125 mg 10/20/20 21:00 10/23/20 20:23 Carvedilol 3.125 Mg Tablet PO 3.125 mg Q12HR CRYSTAL Administration Clopidogrel Bisulfate 75 mg 10/20/20 09:00 10/23/20 08:21 Clopidogrel Bisulfate 75 Mg Tablet PO 75 mg DAILY CRYSTAL Administration Colchicine 0.6 mg 10/20/20 09:00 10/23/20 08:22 Colchicine 0.6 Mg Tablet PO 0.6 mg DAILY CRYSTAL Administration Docusate Sodium 100 mg 10/20/20 09:00 10/23/20 08:21 Docusate Sodium 100 Mg Capsule PO 100 mg DAILY CRYSTAL Administration Epoetin Allan-epbx 10,000 units 10/21/20 10:05 10/23/20 16:01 Epoetin Allan-Epbx 10,000 Units/Ml Vial IV PUSH 10,000 units MOWEFR CRYSTAL Administration Heparin Sodium (Porcine) 5,000 units 10/20/20 21:00 10/23/20 20:25 Heparin Sodium 5,000 Units/Ml Vial SUB-Q 5,000 units Q12HR CRYSTAL Administration Albumin Human 50 mls @ 999 mls/hr 10/21/20 07:00 Albutein IVPB 11/20/20 07:01 Q10M PRN HYPOTENSION Lisinopril 20 mg 10/20/20 09:00 10/23/20 08:21 Lisinopril 20 Mg Tablet PO 20 mg DAILY CRYSTAL Administration Morphine Sulfate 4 mg 10/19/20 18:37 10/23/20 06:52 Morphine Sulfate (*Crx) 4 Mg/Ml Inj IV PUSH 4 mg Q2H PRN Administration Pain Rated 7-10
[2020-10-24] MEDS: COLCHICINE 0.6 MG TABLET PO (09:18)
[2020-10-24] MEDS: carvediloL 3.125 MG TABLET PO ×2 (09:18→20:26)
[2020-10-24] MEDS: DOCUSATE SODIUM 100 MG CAPSULE PO (09:18)
[2020-10-24] MEDS: HYDROcodone/acetaminophen (*CRX) 5-325 MG TABLET 1 TAB PO (09:18)
[2020-10-24] MEDS: ATORVASTATIN 40 MG TABLET PO (09:18)
[2020-10-24] MEDS: PANTOPRAZOLE 40 MG TABLET PO (09:18)
[2020-10-24] MEDS: VITAMIN B CMPLX/VIT C/FOLIC AC 1 CAPSULE 1 CAP PO (09:18)
[2020-10-24] MEDS: lisinopriL 20 MG TABLET PO (09:18)
[2020-10-24] MEDS: CLOPIDOGREL BISULFATE 75 MG TABLET PO (09:18)
[2020-10-24] MEDS: ASPIRIN 81 MG ENTERIC TABLET PO (09:18)
[2020-10-24] MEDS: HEPARIN SODIUM 5,000 UNITS/ML VIAL 5000 UNITS SUB-Q ×2 (09:19→20:26)
[2020-10-24] MEDS: SEVELAMER CARBONATE 800 MG TABLET PO ×2 (09:19→16:56)
--- NOTE | 2020-10-24 15:28 | PM.PNNEP ---
Progress Note: A&P Assessment and Plan (1) End stage renal disease: Code(s): N18.6 - End stage renal disease Status: Chronic Assessment and Plan: HD tomorrow and continue M/W/F schedule while hospitalized electrolytes, volume status, and clearance acceptable (2) Periprosthetic fracture around internal prosthetic left hip joint: Qualifiers: Encounter type: subsequent encounter Qualified Code(s): M97.02XD - Periprosthetic fracture around internal prosthetic left hip joint, subsequent encounter Code(s): M97.02XA - Periprosthetic fracture around internal prosthetic left hip joint, initial encounter Status: Acute Assessment and Plan: Orthopedics following high risk for surgery (but no other real options available) to be transferred to [facility] for surgery (3) Hypertension: Qualifiers: Hypertension type: unspecified Qualified Code(s): I10 - Essential (primary) hypertension Code(s): I10 - Essential (primary) hypertension Status: Acute Assessment and Plan: reasonably control at this time follow trend of hemodynamics (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 Subjective Date/time seen: 10/24/20 15:28 Tolerated dialysis yesterday without any issues or problems; pain management satisfactory -- no pain with laying in bed but acute pain in left leg/hip with any movement; no other acute issues noted; waiting for bed availability at [facility] for transfer. Exam Narrative: Exam Narrative: General: WD/WN female in NAD Heart: normal S1 and S2; no rub Lungs: clear to auscultation Abdomen: soft, nontender, nondistended, positive bowel sounds Extremities: no cyanosis or clubbing; no edema; pain in left leg/hip unchanged Skin: no rash or nodules Objective Data Vital Signs Vital Signs: Vital Signs Temp Pulse Resp BP Pulse Ox 10/24/20 14:00 36.4 C L 64 18 164/72 H 100 10/24/20 09:56 93 10/24/20 09:18 66 10/24/20 05:53 36.4 C L 68 18 165/65 H 100 10/23/20 21:59 36.6 C 84 16 150/60 H 91 10/23/20 20:23 70 10/23/20 20:00 91 10/23/20 18:43 36.7 C 74 16 181/85 H 10/23/20 18:31 74 197/92 H 10/23/20 18:15 62 157/76 H 10/23/20 18:00 63 179/80 H 10/23/20 17:45 63 181/82 H Intake/Output Intake/Output: Intake & Output 10/21/20 10/22/20 10/23/20 10/24/20 23:59 23:59 23:59 23:59 Intake Total 610 1420 860 680 Output Total 1267 2000 0 Balance -657 1420 -1140 680 Meds/Results Medications: Active Medications Generic Name Dose Route Start Last Admin Trade Name Freq PRN Reason Stop Dose Admin Acetaminophen 500 mg 10/20/20 08:11 Acetaminophen 500 Mg Tablet PO QID PRN Mild Pain (1-3) Hydrocodone Bitart/Acetaminophen 1 tab 10/19/20 18:37 10/24/20 09:18 Hydrocodone/Acetaminophen (*Crx) 5-325 Mg Tablet PO 1 tab Q4H PRN Administration Pain Rated 4-6 Aspirin 81 mg 10/20/20 09:00 10/24/20 09:18 Aspirin 81 Mg Enteric Tablet PO 11/19/20 09:01 81 mg DAILY CRYSTAL Administration Atorvastatin Calcium 40 mg 10/20/20 09:00 10/24/20 09:18 Atorvastatin 40 Mg Tablet PO 40 mg DAILY CRYSTAL Administration Carvedilol 3.125 mg 10/20/20 21:00 10/24/20 09:18 Carvedilol 3.125 Mg Tablet PO 3.125 mg Q12HR CRYSTAL Administration Clopidogrel Bisulfate 75 mg 10/20/20 09:00 10/24/20 09:18 Clopidogrel Bisulfate 75 Mg Tablet PO 75 mg DAILY CRYSTAL Administration Colchicine 0.6 mg 10/20/20 09:00 10/24/20 09:18 Colchicine 0.6 Mg Tablet PO 0.6 mg DAILY CRYSTAL Administration Docusate Sodium
--- NOTE | 2020-10-24 16:15 | PM.IMPN ---
Progress Note: A&P Assessment and Plan (1) Intractable pain: Code(s): R52 - Pain, unspecified Status: Acute Assessment and Plan: PATIENT SURGERY AT [facility] HAS BEEN SCHEDULED FOR NEXT WEEK WEDNESDAY SUPPORTIVE CARE PAIN MANAGEMENT UNCHANGED analgesics physical therapy would likely benefit from [facility]. We are awaiting response from [facility] in [place] for transfer. The patient was seen by Orthopedics here and has since the information to [facility]. (2) Periprosthetic fracture around internal prosthetic left hip joint: Qualifiers: Encounter type: subsequent encounter Qualified Code(s): M97.02XD - Periprosthetic fracture around internal prosthetic left hip joint, subsequent encounter Code(s): M97.02XA - Periprosthetic fracture around internal prosthetic left hip joint, initial encounter Status: Acute Assessment and Plan: Left hip bipolar hemiarthroplasty with extensive lucencies around the femoral stem, consistent with loosening versus infection, and transverse periprosthetic fracture near the tip of the femoral stem. 2. Severe left knee osteoarthritis. Awaiting return call from [facility] For transfer. (3) End-stage renal disease needing dialysis: Code(s): N18.6 - End stage renal disease; Z99.2 - Dependence on renal dialysis Status: Acute Assessment and Plan: CONTINUE TO MONITOR nephrology consultation for dialysis management Patient has dialysis on Wednesday and Wednesday. 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 Status: Acute Assessment and Plan: stable from previously continue with retacrit (5) Renal osteodystrophy: Code(s): N25.0 - Renal osteodystrophy Status: Acute Assessment and Plan: continue phosphate binders (6) Hypertension: Qualifiers: Hypertension type: unspecified Qualified Code(s): I10 - Essential (primary) hypertension Code(s): I10 - Essential (primary) hypertension Status: Acute Assessment and Plan: CONTINUE TO MONITOR blood pressure reviewed today continue home regimen Continue with Coreg and lisinopril Subjective Date/time seen: 10/24/20 16:15 I FEEL OKAY Review of Systems Review of Systems: All systems reviewed & are unremarkable except as noted in HPI and below Constitutional: Constitutional: Reports as per HPI and Reports no additional constitutional complaints Eyes: Eyes: Reports as per HPI and Reports no additional eye complaints ENT: Reports system reviewed and no additional complaints, except as documented and Reports Normal hearing present Cardiovascular: Cardiovascular: Reports no additional cardiovascular complaints Respiratory: Respiratory: Reports no additional respiratory complaints and Reports no additional respiratory complaints Gastrointestinal: Gastrointestinal: Reports as per HPI and Reports no additional gastrointestinal complaints Musculoskeletal: Musculoskeletal: Reports no additional musculoskeletal complaints Integumentary/Breasts: Skin/Breast: Reports system reviewed and no additional complaints, except as docu and Reports as per HPI Neurologic: Reports system reviewed and no additional complaints, except as documented, Reports as per HPI and Reports Normal hearing present Psychiatric: Psychiatric: Reports no additional psychiatric complaints and Reports as per HPI Endocrine: Endocrine: Reports no additional endocrine complaints Hematologic/Lymphatic: Hematologic/Lymphatic: Reports no additional hematologic/lymphatic complaints Allergic/Immunologic: Allergic/Immunologic: Reports no additional allergic/immunologic complaints Exam Narrative: Exam Narrative: LAYING IN BED Const: General: cooperative, comfortable, no acute distress, well developed, alert, awake, Physically active and ill appea
[2020-10-24] MEDS: MORPHINE SULFATE (*CRX) 4 MG/ML INJ IV PUSH (19:27)
[2020-10-25] VITALS (15 sets, daily range): BP systolic 142–193; BP diastolic 68–86; PULSE 60–81; RESP 18; TEMP 36.2–37.1; O2SAT 94–100
[2020-10-25] MEDS: MORPHINE SULFATE (*CRX) 4 MG/ML INJ IV PUSH ×2 (04:03→21:32)
[2020-10-25] MEDS: ASPIRIN 81 MG ENTERIC TABLET PO (09:28)
[2020-10-25] MEDS: VITAMIN B CMPLX/VIT C/FOLIC AC 1 CAPSULE 1 CAP PO (09:28)
[2020-10-25] MEDS: ATORVASTATIN 40 MG TABLET PO (09:28)
[2020-10-25] MEDS: carvediloL 3.125 MG TABLET PO ×2 (09:28→21:30)
[2020-10-25] MEDS: SEVELAMER CARBONATE 800 MG TABLET PO ×2 (09:29→21:30)
[2020-10-25] MEDS: PANTOPRAZOLE 40 MG TABLET PO (09:29)
[2020-10-25] MEDS: COLCHICINE 0.6 MG TABLET PO (09:29)
[2020-10-25] MEDS: lisinopriL 20 MG TABLET PO (09:29)
[2020-10-25] MEDS: DOCUSATE SODIUM 100 MG CAPSULE PO (09:29)
[2020-10-25] MEDS: HYDROcodone/acetaminophen (*CRX) 5-325 MG TABLET 1 TAB PO (11:34)
[2020-10-25] MEDS: HEPARIN SODIUM 5,000 UNITS/ML VIAL 5000 UNITS SUB-Q ×2 (11:35→21:30)
--- NOTE | 2020-10-25 12:40 | PM.IMPN ---
Progress Note: A&P Assessment and Plan (1) Intractable pain: Code(s): R52 - Pain, unspecified Status: Acute Assessment and Plan: patient is an 85-year-old woman with a history of end-stage renal disease on dialysis, chronic respiratory failure on 2 L of oxygen, who presented to the emergency room with left thigh pain which occurred while she was walking out of dialysis. The patient was unable to walk after the sudden episode of pain so she came to the emergency room for further evaluation. Initial vitals showed slight fever of 99.3?, heart rate normal at 82, elevated blood pressure at 206/101, normal oxygenation 94% on 2 L. initial labs showed slight leukopenia at 4100, normocytic anemia with a hemoglobin of 10, hematocrit 34%, normal platelet count, slight hyponatremia at 135, elevated creatinine at 5.2, BUN 28 on dialysis, normal lactic acid. CT left femur showed Left hip bipolar hemiarthroplasty with extensive lucencies around the femoral stem, consistent with loosening versus infection, and transverse periprosthetic fracture near the tip of the femoral stem. Severe left knee osteoarthritis. are orthopedic surgeon Dr. Peralta was consulted on the case who has been in contact with and orthopedic surgeon at [facility] Dr. Jaime Frausto. the patient has plans to have surgery at [facility] next week 10/29 or 10/30. I am trying to get in consult with [facility] orthopedic surgery team because we have plans of keeping the patient here since she has to be bed rest, Tashi lift, nonweightbearing, pain control and will need to be transferred to [facility] on Wednesday for her surgery. At this time, her pain is well controlled. Will continue with Colace, MiraLax, and p.r.n. suppositories for constipation due to inactivity and narcotic pain meds will hold Plavix at this time since if she has surgery on Wednesday it will be 5 days of holding the medication. (2) Periprosthetic fracture around internal prosthetic left hip joint: Qualifiers: Encounter type: subsequent encounter Qualified Code(s): M97.02XD - Periprosthetic fracture around internal prosthetic left hip joint, subsequent encounter Code(s): M97.02XA - Periprosthetic fracture around internal prosthetic left hip joint, initial encounter Status: Acute Assessment and Plan: See above (3) End-stage renal disease needing dialysis: Code(s): N18.6 - End stage renal disease; Z99.2 - Dependence on renal dialysis Status: Acute Assessment and Plan: Nephrology consultation for dialysis management Patient has dialysis on Wednesday and Wednesday. 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 continue home regimen Continue with Coreg and lisinopril (7) Chronic respiratory failure with hypoxia: Code(s): J96.11 - Chronic respiratory failure with hypoxia Status: Acute Assessment and Plan: Resting comfortably on her 2 L via nasal cannula. She has no worsening shortness of breath or change to her chronic cough. Continue her home medications at this time.
--- NOTE | 2020-10-25 14:25 | PM.PNNEP ---
Progress Note: A&P Assessment and Plan (1) End stage renal disease: Code(s): N18.6 - End stage renal disease Status: Chronic Assessment and Plan: HD today and continue M/W/F schedule while hospitalized electrolytes, volume status, and clearance acceptable (2) Periprosthetic fracture around internal prosthetic left hip joint: Qualifiers: Encounter type: subsequent encounter Qualified Code(s): M97.02XD - Periprosthetic fracture around internal prosthetic left hip joint, subsequent encounter Code(s): M97.02XA - Periprosthetic fracture around internal prosthetic left hip joint, initial encounter Status: Acute Assessment and Plan: Orthopedics following high risk for surgery (but no other real options available) to be transferred to [facility] for surgery (3) Hypertension: Qualifiers: Hypertension type: unspecified Qualified Code(s): I10 - Essential (primary) hypertension Code(s): I10 - Essential (primary) hypertension Status: Acute Assessment and Plan: reasonably control at this time follow trend of hemodynamics (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 Subjective Date/time seen: 10/25/20 14:25 No new issues or problems to report at this time; due for dialysis later today; pain control not an issues as long as she does not move around too much; no events overnight or earlier this AM. Exam Narrative: Exam Narrative: General: WD/WN female in NAD Heart: normal S1 and S2; no rub Lungs: clear to auscultation Abdomen: soft, nontender, nondistended, positive bowel sounds Extremities: no cyanosis or clubbing; no edema; pain in left leg/hip unchanged Skin: warm and dry Objective Data Vital Signs Vital Signs: Vital Signs Temp Pulse Resp BP Pulse Ox 10/25/20 09:50 100 10/25/20 09:28 76 10/25/20 06:00 36.9 C 65 18 168/74 H 100 10/24/20 21:07 36.9 C 63 18 154/63 H 99 10/24/20 20:26 80 10/24/20 20:00 63 18 99 Intake/Output Intake/Output: Intake & Output 10/22/20 10/23/20 10/24/20 10/25/20 23:59 23:59 23:59 23:59 Intake Total 6009 596 0552 440 Output Total 1999 0 Balance 1420 -1140 1020 440 Meds/Results Medications: Active Medications Generic Name Dose Route Start Last Admin Trade Name Sidq PRN Reason Stop Dose Admin Acetaminophen 500 mg 10/20/20 08:11 Acetaminophen 500 Mg Tablet PO QID PRN Mild Pain (1-3) Hydrocodone Bitart/Acetaminophen 1 tab 10/19/20 18:37 10/25/20 11:34 Hydrocodone/Acetaminophen (*Crx) 5-325 Mg Tablet PO 1 tab Q4H PRN Administration Pain Rated 4-6 Aspirin 81 mg 10/20/20 09:00 10/25/20 09:28 Aspirin 81 Mg Enteric Tablet PO 11/19/20 09:01 81 mg DAILY CRYSTAL Administration Atorvastatin Calcium 40 mg 10/20/20 09:00 10/25/20 09:28 Atorvastatin 40 Mg Tablet PO 40 mg DAILY CRYSTAL Administration Carvedilol 3.125 mg 10/20/20 21:00 10/25/20 09:28 Carvedilol 3.125 Mg Tablet PO 3.125 mg Q12HR CRYSTAL Administration Clopidogrel Bisulfate 75 mg 10/20/20 09:00 10/25/20 11:18 Clopidogrel Bisulfate 75 Mg Tablet PO Not Given DAILY CRYSTAL Colchicine 0.6 mg 10/20/20 09:00 10/25/20 09:29 Colchicine 0.6 Mg Tablet PO 0.6 mg DAILY CRYSTAL Administration Docusate Sodium 100 mg 10/20/20 09:00 10/25/20 09:29 Docusate Sodium 100 Mg Capsule PO 100 mg DAILY CRYSTAL Administration Epoetin Allan-epbx 10,000 units 10/21/20 10:05 10/23/20 16:01 Epoetin Allan-Epbx 10,000 Units/Ml Vial IV PUSH 10,000 units MOWEFR CRYSTAL Administration Heparin Sodium (Porcine) 5,
[2020-10-25] MEDS: EPOETIN ALFA-EPBX 10,000 UNITS/ML VIAL 10000 UNITS IV PUSH (16:00)
--- NOTE | 2020-10-25 17:29 | PM.PNORT ---
Progress Note: A&P Additional Plan Patient is much more comfortable with just a pillow underneath the knee and calf. She is able to move the knee in foot and ankle freely without discomfort. She is at bed rest only Tashi lift [id number] transfers. She is in dialysis right now. I have spoken with the hospitalist service several times today. I have had no personal communication with [facility] and it was my understanding as it was reported by the nursing staff over last few days that is believed that surgery is scheduled for next week. I have spoken with the patient over and I have spoken with her son and they have had no personal communication with [facility] about this and there is no record of anyanyone on the hospitalist staff speaking directly with [facility] about her being transferred her and her having surgery. All we have is the Reamer. I agree with stopping her Plavix today. I have spoke with the patient and she has no history of stroke heart disease or stents. 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 She had a de clotting procedure done at [facility] by the interventional radiologist approximately 2 days after surgery unfortunately I was successful. I am going to try to communicate with Jaime Frausto to get confirmation of the planned for surgery and determine an exact date for transfer. Subjective Subjective Date/Time Seen: 10/25/20 17:29 Objective Data Vital Signs Vital Signs: Vital Signs - 24 hr 10/24/20 20:00 10/24/20 20:26 10/24/20 21:07 Temperature 36.9 C Pulse Rate 63 80 63 Respiratory Rate 18 18 Blood Pressure 154/63 H Pulse Oximetry 99 99 10/25/20 06:00 10/25/20 09:28 10/25/20 09:50 Temperature 36.9 C Pulse Rate 65 76 Respiratory Rate 18 Blood Pressure 168/74 H Pulse Oximetry 100 100 10/25/20 14:00 10/25/20 15:15 10/25/20 15:30 Temperature 36.2 C L 36.7 C Pulse Rate 81 64 63 Respiratory Rate 18 18 Blood Pressure 142/68 H 176/83 H 169/78 H Pulse Oximetry 99 10/25/20 16:15 10/25/20 17:00 Temperature Pulse Rate 60 65 Respiratory Rate Blood Pressure 155/73 H 193/86 H Pulse Oximetry Intake/Output Intake/Output: Intake & Output 10/22/20 10/23/20 10/24/20 10/25/20 23:59 23:59 23:59 23:59 Intake Total 9491 964 3491 680 Output Total 2000 0 Balance 1420 -1140 1020 680 Meds/Results Medications: Active Medications Generic Name Dose Route Start Last Admin Trade Name Freq PRN Reason Stop Dose Admin Acetaminophen 500 mg 10/20/20 08:11 Acetaminophen 500 Mg Tablet PO QID PRN Mild Pain (1-3) Hydrocodone Bitart/Acetaminophen 1 tab 10/19/20 18:37 10/25/20 11:34 Hydrocodone/Acetaminophen (*Crx) 5-325 Mg Tablet PO 1 tab Q4H PRN Administration Pain Rated 4-6 Aspirin 81 mg 10/20/20 09:00 10/25/20 09:28 Aspirin 81 Mg Enteric Tablet PO 11/19/20 09:01 81 mg DAILY CRYSTAL Administration Atorvastatin Calcium 40 mg 10/20/20 09:00 10/25/20 09:28 Atorvastatin 40 Mg Tablet PO 40 mg DAILY CRYSTAL Administration Carvedilol 3.125 mg 10/20/20 21:00 10/25/20 09:28 Carvedilol 3.125 Mg Tablet PO 3.125 mg Q12HR CRYSTAL Administration Clopidogrel Bisulfate 75 mg 10/20/20 09:00 10/25/20 11:18 Clopidogrel Bisulfate 75 Mg Tablet PO Not Given DAILY CRYSTAL Colchicine 0.6 mg 10/20/20 09:00 10/25/20 09:29 Colchicine 0.6 Mg Tablet PO 0.6 mg DAILY CRYSTAL Administration Docusate Sodium 100 mg 10/20/20 09:00 10/25/20 09:29 Docusate Sodium 100 Mg Capsule PO 100 mg DAILY CRYSTAL Administration Epoetin Allan-epbx 10,000 units 10/21/20 10:05 10/25/20 16:00 Epoetin Allan-Epbx 10,000 Units/Ml Vial IV PUSH 10,000 units MOWEFR CRYSTAL Administration Heparin Sodium (Porcine) 5,000 units 10/20/20 21:00 10/25/20 11:35 Heparin Sodium 5,000 Units/Ml Vial SUB-Q 5,000 units Q12HR [facility] Ad
[2020-10-25] MEDS: BISACODYL 10 MG SUPPOSITORY RECTAL ×2 (21:28→21:29)
[2020-10-25] MEDS: polyethylene glycoL 3350 17 GM POWD.PACK PO (21:29)
[2020-10-25] MEDS: ONDANSETRON INJ 4 MG/2 ML VIAL IV PUSH (21:33)
[2020-10-26 05:52] LABS: Hematocrit 38.1 % (37.0-47.0); Hemoglobin 11.9 g/dL (12.0-15.0); Mean Corpuscular HGB Conc 31.2 g/dl (32-36); Mean Corpuscular Hemoglobin 30.4 pg (26-34); Mean Corpuscular Volume 97.4 fl (80-100); Mean Platelet Volume 10.8 fl (7.4-10.4); Platelet Count Result 159 k/mm3 (150-375); Red Blood Count 3.91 M/mm3 (4.2-5.4); Red Cell Distribution Width 15.2 % (11.5-14.5); White Blood Count 4.4 K/mm3 (4.5-10.0)
[2020-10-26 06:00] VITALS: BP 128/62; PULSE 97; RESP 16; TEMP 37.2; O2SAT 97
[2020-10-26 06:23] LABS: Albumin Level 3.7 g/dL (3.5-5.1); Anion Gap 7 mmol/L (8-16); Blood Urea Nitrogen 22 mg/dL (7-17); Calcium 9.9 mg/dL (8.4-10.2); Carbon Dioxide 31 mmol/L (22-30); Chloride 97 mmol/L (98-107); Estimated CRCL calculation 7 ml/min; Estimated Glomerular Filt Rate 11; Glucose 92 mg/dL (65-110); Phosphorus 3.9 mg/dL (2.5-4.5); Potassium 4.7 mmol/L (3.4-5.0); Sodium 135 mmol/L (137-145)
[2020-10-26] MEDS: SEVELAMER CARBONATE 800 MG TABLET PO ×2 (09:54→17:56)
[2020-10-26] MEDS: VITAMIN B CMPLX/VIT C/FOLIC AC 1 CAPSULE 1 CAP PO (09:54)
[2020-10-26] MEDS: ATORVASTATIN 40 MG TABLET PO (09:54)
[2020-10-26] MEDS: carvediloL 3.125 MG TABLET PO ×2 (09:54→20:20)
[2020-10-26] MEDS: PANTOPRAZOLE 40 MG TABLET PO (09:54)
[2020-10-26] MEDS: ASPIRIN 81 MG ENTERIC TABLET PO (09:54)
[2020-10-26] MEDS: lisinopriL 20 MG TABLET PO (09:54)
[2020-10-26] MEDS: COLCHICINE 0.6 MG TABLET PO (09:54)
[2020-10-26] MEDS: DOCUSATE SODIUM 100 MG CAPSULE PO ×2 (09:54→17:56)
[2020-10-26] MEDS: polyethylene glycoL 3350 17 GM POWD.PACK PO (09:55)
[2020-10-26] MEDS: HEPARIN SODIUM 5,000 UNITS/ML VIAL 5000 UNITS SUB-Q ×2 (09:55→20:20)
[2020-10-26] MEDS: MORPHINE SULFATE (*CRX) 4 MG/ML INJ IV PUSH ×2 (10:09→18:03)
--- NOTE | 2020-10-26 10:24 | PM.IMPN ---
Progress Note: A&P Assessment and Plan (1) Intractable pain: Code(s): R52 - Pain, unspecified Status: Acute Assessment and Plan: Patient is an 85-year-old woman with a history of end-stage renal disease on dialysis, chronic respiratory failure on 2 L of oxygen, who presented to the emergency room with left thigh pain which occurred while she was walking out of dialysis. The patient was unable to walk after the sudden episode of pain so she came to the emergency room for further evaluation. Initial vitals showed slight fever of 99.3?, heart rate normal at 82, elevated blood pressure at 206/101, normal oxygenation 94% on 2 L. initial labs showed slight leukopenia at 4100, normocytic anemia with a hemoglobin of 10, hematocrit 34%, normal platelet count, slight hyponatremia at 135, elevated creatinine at 5.2, BUN 28 on dialysis, normal lactic acid. CT left femur showed Left hip bipolar hemiarthroplasty with extensive lucencies around the femoral stem, consistent with loosening versus infection, and transverse periprosthetic fracture near the tip of the femoral stem. Severe left knee osteoarthritis. the patient was admitted into the hospital for pain control, consult orthopedic surgery and further evaluation and monitoring. there are some reports that the patient has surgery scheduled for Wednesday, 10/[address] Frausto at [facility] Ortho[facility]gery. The Patient and her son have not talked to anyone at [facility] about any surgery. I tried to call [facility] Ortho office 10/25/2020 multiple times without any call back to confirm the patient surgery. I discussed with Dr. Peralta, our ortho surgeon who never discussed with [facility] directly. We are both trying to communicate with the orthopedic physician or office staff to trying confirm the patient surgery. Until then she will stay here, hospitalize receiving PT/OT, pain management due to her unstable fracture and if we can confirm her surgery next week our plan is to transfer her 1-2 days prior to her surgery so they can further evaluate and treat prior to her surgery. She is to remain bed rest, with Tashi lift, nonweightbearing. At this time, her pain is well controlled. Will continue with Colace, MiraLax, and p.r.n. suppositories for constipation due to inactivity and narcotic pain meds will hold Plavix 10/25/20 which what is normally recommended 5 days prior to surgery. Tried to confirm with Orthopedic Surgery but was unable to get ahold of them. (2) Periprosthetic fracture around internal prosthetic left hip joint: Qualifiers: Encounter type: subsequent encounter Qualified Code(s): M97.02XD - Periprosthetic fracture around internal prosthetic left hip joint, subsequent encounter Code(s): M97.02XA - Periprosthetic fracture around internal prosthetic left hip joint, initial encounter Status: Acute Assessment and Plan: See above (3) End-stage renal disease needing dialysis: Code(s): N18.6 - End stage renal disease; Z99.2 - Dependence on renal dialysis Status: Acute Assessment and Plan: Nephrology consultation for dialysis management. Patient has dialysis on Wednesday and Wednesday. 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 H&H stable. (5) Renal osteodystrophy: Code(s): N25.0 - Renal osteodystrophy Status: Acute Assessment and Plan: continue phosphate binders (6) Hypertension: Qualifiers: Hypertension type: unspecified Qualified Code(s): I10 - Essential (primary) hypertension Code(s): I10 - Essential (primary) hypertensi
[2020-10-26 12:30] VITALS: O2SAT 84
--- NOTE | 2020-10-26 13:24 | PM.PNORT ---
Progress Note: A&P Additional Plan Hospital day 7. With nondisplaced periprosthetic left midshaft femur fracture. I have not heard reply from Dr. Frausto as yet. If we do not hear a reply by Wednesday I would recommend that the orthopedic team is contacted at [facility] through the doctors access line Wednesday. If I hear something between now and then I will document that in the chart. Patient had dialysis yesterday. She is comfortable at rest. There is no swelling in the leg. She is on subcu heparin 5000 units twice daily for DVT prophylaxis as well as SCDs. The Plavix has been held. We are continuing the baby aspirin. Subjective Subjective Date/Time Seen: 10/26/20 13:24 Objective Data Vital Signs Vital Signs: Vital Signs - 24 hr 10/25/20 14:00 10/25/20 15:15 10/25/20 15:30 Temperature 36.2 C L 36.7 C Pulse Rate 81 64 63 Respiratory Rate 18 18 Blood Pressure 142/68 H 176/83 H 169/78 H Pulse Oximetry 99 10/25/20 16:15 10/25/20 17:00 10/25/20 17:30 Temperature Pulse Rate 60 65 60 Respiratory Rate Blood Pressure 155/73 H 193/86 H 171/80 H Pulse Oximetry 10/25/20 18:15 10/25/20 18:45 10/25/20 19:00 Temperature Pulse Rate 60 62 61 Respiratory Rate Blood Pressure 179/83 H 188/83 H 177/82 H Pulse Oximetry 10/25/20 19:15 10/25/20 21:30 10/25/20 22:00 Temperature 36.8 C 37.1 C Pulse Rate 61 68 62 Respiratory Rate 18 18 Blood Pressure 184/78 H 170/72 H Pulse Oximetry 94 10/26/20 06:00 Temperature 37.2 C Pulse Rate 97 Respiratory Rate 16 Blood Pressure 128/62 Pulse Oximetry 97 Intake/Output Intake/Output: Intake & Output 10/23/20 10/24/20 10/25/20 10/26/20 23:59 23:59 23:59 23:59 Intake Total 860 1020 780 520 Output Total 1999 0 1999 Balance -1140 1020 -1220 520 Meds/Results Medications: Active Medications Generic Name Dose Route Start Last Admin Trade Name Freq PRN Reason Stop Dose Admin Acetaminophen 500 mg 07/11/21 08:11 Acetaminophen 500 Mg Tablet PO QID PRN Mild Pain (1-3) Hydrocodone Bitart/Acetaminophen 1 tab 10/19/20 18:37 10/25/20 11:34 Hydrocodone/Acetaminophen (*Crx) 5-325 Mg Tablet PO 1 tab Q4H PRN Administration Pain Rated 4-6 Aspirin 81 mg 10/20/20 09:00 10/26/20 09:54 Aspirin 81 Mg Enteric Tablet PO 11/19/20 09:01 81 mg DAILY CRYSTAL Administration Atorvastatin Calcium 40 mg 10/20/20 09:00 10/26/20 09:54 Atorvastatin 40 Mg Tablet PO 40 mg DAILY CRYSTAL Administration Carvedilol 3.125 mg 10/20/20 21:00 10/26/20 09:54 Carvedilol 3.125 Mg Tablet PO 3.125 mg Q12HR CRYSTAL Administration Clopidogrel Bisulfate 75 mg 10/20/20 09:00 10/25/20 11:18 Clopidogrel Bisulfate 75 Mg Tablet PO Not Given DAILY CRYSTAL Colchicine 0.6 mg 10/20/20 09:00 10/26/20 09:54 Colchicine 0.6 Mg Tablet PO 0.6 mg DAILY CRYSTAL Administration Docusate Sodium 100 mg 10/26/20 17:00 Docusate Sodium 100 Mg Capsule PO BID CRYSTAL Epoetin Allan-epbx 10,000 units 10/21/20 10:05 10/25/20 16:00 Epoetin Allan-Epbx 10,000 Units/Ml Vial IV PUSH 10,000 units MOWEFR CRYSTAL Administration Heparin Sodium (Porcine) 5,000 units 10/20/20 21:00 10/26/20 09:55 Heparin Sodium 5,000 Units/Ml Vial SUB-Q 5,000 units Q12HR CRYSTAL Administration Albumin Human 50 mls @ 999 mls/hr 10/21/20 07:00 Albutein IVPB 11/20/20 07:01 Q10M PRN HYPOTENSION Lisinopril 20 mg 10/20/20 09:00 10/26/20 09:54 Lisinopril 20 Mg Tablet PO 20 mg DAILY CRYSTAL Administration Morphine Sulfate 4 mg 10/19/20 18:37 10/26/20 10:09 Morphine Sulfate (*Crx) 4 Mg/Ml Inj IV PUSH 4 mg Q2H PRN Administration Pain Rated 7-10 Ondansetron HCl 4 mg 10/19/20 18:37 10/25/20 21:33 Ondansetron Inj 4 Mg/2 Ml Vial IV PUSH 4 mg Q4H PRN Administration Nausea Pantoprazole Sodium 40 mg 10/20/20 09:00 10/26/20 09:54 Pantoprazole 40 Mg Tablet PO 40 mg DAILY CRYSTAL Administrati
[2020-10-26 14:00] VITALS: BP 140/59; PULSE 59; RESP 20; TEMP 36.3; O2SAT 100
[2020-10-26 14:02] VITALS: O2SAT 99
--- NOTE | 2020-10-26 14:26 | PM.PNNEP ---
Progress Note: A&P Assessment and Plan (1) End stage renal disease: Code(s): N18.6 - End stage renal disease Status: Chronic Assessment and Plan: HD yesterday and continue M/W/ schedule while hospitalized electrolytes, volume status, and clearance acceptable (2) Periprosthetic fracture around internal prosthetic left hip joint: Qualifiers: Encounter type: subsequent encounter Qualified Code(s): M97.02XD - Periprosthetic fracture around internal prosthetic left hip joint, subsequent encounter Code(s): M97.02XA - Periprosthetic fracture around internal prosthetic left hip joint, initial encounter Status: Acute Assessment and Plan: Orthopedics following high risk for surgery (but no other real options available) to be transferred to [facility] for surgery (3) Hypertension: Qualifiers: Hypertension type: unspecified Qualified Code(s): I10 - Essential (primary) hypertension Code(s): I10 - Essential (primary) hypertension Status: Acute Assessment and Plan: reasonably control at this time follow trend of hemodynamics (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 Subjective Date/time seen: 10/26/20 14:26 Tolerated dialysis yesterday without any issues or problems; no other acute issues or problems voiced at this time; no events overnight or earlier this AM. Exam Narrative: Exam Narrative: General: WD/WN female in NAD Heart: normal S1 and S2; no rub Lungs: clear to auscultation Abdomen: soft, nontender, nondistended, positive bowel sounds Extremities: no cyanosis or clubbing; no edema; pain in left leg/hip unchanged Skin: warm and intact Objective Data Vital Signs Vital Signs: Vital Signs Temp Pulse Resp BP Pulse Ox 10/26/20 14:02 99 10/26/20 06:00 37.2 C 97 16 128/62 97 10/25/20 22:00 37.1 C 62 18 170/72 H 94 10/25/20 21:30 68 10/25/20 19:15 36.8 C 61 18 184/78 H 10/25/20 19:00 61 177/82 H 10/25/20 18:45 62 188/83 H 10/25/20 18:15 60 179/83 H 10/25/20 17:30 60 171/80 H 10/25/20 17:00 65 193/86 H Intake/Output Intake/Output: Intake & Output 10/23/20 10/24/20 10/25/20 10/26/20 23:59 23:59 23:59 23:59 Intake Total 860 1020 780 520 Output Total 1999 0 1999 Balance -1140 1020 -1220 520 Meds/Results Medications: Active Medications Generic Name Dose Route Start Last Admin Trade Name Freq PRN Reason Stop Dose Admin Acetaminophen 500 mg 10/20/20 08:11 Acetaminophen 500 Mg Tablet PO QID PRN Mild Pain (1-3) Hydrocodone Bitart/Acetaminophen 1 tab 10/19/20 18:37 10/25/20 11:34 Hydrocodone/Acetaminophen (*Crx) 5-325 Mg Tablet PO 1 tab Q4H PRN Administration Pain Rated 4-6 Aspirin 81 mg 10/20/20 09:00 10/26/20 09:54 Aspirin 81 Mg Enteric Tablet PO 11/19/20 09:01 81 mg DAILY CRYSTAL Administration Atorvastatin Calcium 40 mg 10/20/20 09:00 10/26/20 09:54 Atorvastatin 40 Mg Tablet PO 40 mg DAILY CRYSTAL Administration Carvedilol 3.125 mg 10/20/20 21:00 10/26/20 09:54 Carvedilol 3.125 Mg Tablet PO 3.125 mg Q12HR CRYSTAL Administration Clopidogrel Bisulfate 75 mg 10/20/20 09:00 10/25/20 11:18 Clopidogrel Bisulfate 75 Mg Tablet PO Not Given DAILY CRYSTAL Colchicine 0.6 mg 10/20/20 09:00 10/26/20 09:54 Colchicine 0.6 Mg Tablet PO 0.6 mg DAILY CRYSTAL Administration Docusate Sodium 100 mg 10/26/20 17:00 Docusate Sodium 100 Mg Capsule PO BID CRYSTAL Epoetin Allan-epbx 10,000 units 10/21/20 10:05 10/25/20 16:00 Epoetin Allan-Epbx 10,000 Units/Ml
[2020-10-26 20:20] VITALS: PULSE 80
[2020-10-26 22:00] VITALS: BP 134/66; PULSE 75; RESP 20; TEMP 36.7; O2SAT 98
[2020-10-27] VITALS (7 sets, daily range): BP systolic 149–169; BP diastolic 68–70; PULSE 60–110; RESP 15–18; TEMP 36.2–36.8; O2SAT 92–100
[2020-10-27] MEDS: MORPHINE SULFATE (*CRX) 4 MG/ML INJ IV PUSH (08:39)
[2020-10-27] MEDS: PANTOPRAZOLE 40 MG TABLET PO (08:44)
[2020-10-27] MEDS: SEVELAMER CARBONATE 800 MG TABLET PO ×2 (08:44→16:59)
[2020-10-27] MEDS: COLCHICINE 0.6 MG TABLET PO (08:44)
[2020-10-27] MEDS: carvediloL 3.125 MG TABLET PO ×2 (08:44→20:37)
[2020-10-27] MEDS: lisinopriL 20 MG TABLET PO (08:44)
[2020-10-27] MEDS: ATORVASTATIN 40 MG TABLET PO (08:44)
[2020-10-27] MEDS: VITAMIN B CMPLX/VIT C/FOLIC AC 1 CAPSULE 1 CAP PO (08:44)
[2020-10-27] MEDS: ASPIRIN 81 MG ENTERIC TABLET PO (08:45)
[2020-10-27] MEDS: DOCUSATE SODIUM 100 MG CAPSULE PO ×2 (08:45→16:59)
[2020-10-27] MEDS: HEPARIN SODIUM 5,000 UNITS/ML VIAL 5000 UNITS SUB-Q ×2 (08:45→20:37)
[2020-10-27] MEDS: polyethylene glycoL 3350 17 GM POWD.PACK PO (08:54)
--- NOTE | 2020-10-27 10:21 | PM.IMPN ---
Progress Note: A&P Assessment and Plan (1) Intractable pain: Code(s): R52 - Pain, unspecified Status: Acute Assessment and Plan: Patient is an 85-year-old woman with a history of end-stage renal disease on dialysis, chronic respiratory failure on 2 L of oxygen, who presented to the emergency room with left thigh pain which occurred while she was walking out of dialysis. The patient was unable to walk after the sudden episode of pain so she came to the emergency room for further evaluation. Initial vitals showed slight fever of 99.3?, heart rate normal at 82, elevated blood pressure at 206/101, normal oxygenation 94% on 2 L. initial labs showed slight leukopenia at 4100, normocytic anemia with a hemoglobin of 10, hematocrit 34%, normal platelet count, slight hyponatremia at 135, elevated creatinine at 5.2, BUN 28 on dialysis, normal lactic acid. CT left femur showed Left hip bipolar hemiarthroplasty with extensive lucencies around the femoral stem, consistent with loosening versus infection, and transverse periprosthetic fracture near the tip of the femoral stem. Severe left knee osteoarthritis. the patient was admitted into the hospital for pain control, consult orthopedic surgery and further evaluation and monitoring. there are some reports that the patient has surgery scheduled for Wednesday, 10/[address] Frausto at [facility] OrthoSurgery. I discussed the patient's case with [facility] yesterday and they have plans for her to be transferred tomorrow to [facility]. She is to remain bed rest, with Tashi lift, nonweightbearing. At this time, her pain is well controlled. Will continue with Colace, MiraLax, and p.r.n. suppositories for constipation due to inactivity and narcotic pain meds will hold Plavix 10/25/20 which what is normally recommended 5 days prior to surgery. Tried to confirm with Orthopedic Surgery but was unable to get ahold of them. (2) Periprosthetic fracture around internal prosthetic left hip joint: Qualifiers: Encounter type: subsequent encounter Qualified Code(s): M97.02XD - Periprosthetic fracture around internal prosthetic left hip joint, subsequent encounter Code(s): M97.02XA - Periprosthetic fracture around internal prosthetic left hip joint, initial encounter Status: Acute Assessment and Plan: See above (3) End-stage renal disease needing dialysis: Code(s): N18.6 - End stage renal disease; Z99.2 - Dependence on renal dialysis Status: Acute Assessment and Plan: Nephrology consultation for dialysis management. Patient has dialysis on Wednesday and Wednesday. 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 H&H stable. (5) Renal osteodystrophy: Code(s): N25.0 - Renal osteodystrophy Status: Acute Assessment and Plan: continue phosphate binders (6) Hypertension: Qualifiers: Hypertension type: unspecified Qualified Code(s): I10 - Essential (primary) hypertension Code(s): I10 - Essential (primary) hypertension Status: Acute Assessment and Plan: Blood pressure slightly elevated this morning 149/68 continue home regimen Continue with Coreg and lisinopril (7) Chronic respiratory failure with hypoxia: Code(s): J96.11 - Chronic respiratory failure with hypoxia Status: Acute Assessment and Plan: Resting comfortably on her 2 L via nasal cannula. She has no worsening shortness of breath or change to her chronic cough. Continue her home medications at this time.
--- NOTE | 2020-10-27 12:26 | PM.PNORT ---
Progress Note: A&P Additional Plan Hospitalist service spoke with Dr. Majano who is the fellow with Dr. Frausto, Yesterday and I communicated with Dr. Frausto via text yesterday, and the plan for surgery at Wednesday was confirmed. She is going to be transferred over Wednesday, tomorrow for pre-surgical evaluation. I have discussed this with the patient. She does understand the risks involved but does not wish to remain Permanently inmmobile as she is currently. Subjective Subjective Date/Time Seen: 10/27/20 12:26 Objective Data Vital Signs Vital Signs: Vital Signs - 24 hr 10/26/20 12:30 10/26/20 14:00 10/26/20 14:02 Temperature 36.3 C L Pulse Rate 59 L Respiratory Rate 20 Blood Pressure 140/59 L Pulse Oximetry 84 L 100 99 10/26/20 20:20 10/26/20 22:00 10/27/20 06:00 Temperature 36.7 C 36.5 C Pulse Rate 80 75 110 H Respiratory Rate 20 18 Blood Pressure 134/66 149/68 H Pulse Oximetry 98 93 10/27/20 08:47 Temperature Pulse Rate 71 Respiratory Rate Blood Pressure Pulse Oximetry Intake/Output Intake/Output: Intake & Output 10/24/20 10/25/20 10/26/20 10/27/20 23:59 23:59 23:59 23:59 Intake Total 9872 929 9753 720 Output Total 0 2000 Balance 1020 -1220 1160 720 Meds/Results Medications: Active Medications Generic Name Dose Route Start Last Admin Trade Name Freq PRN Reason Stop Dose Admin Acetaminophen 500 mg 10/20/20 08:11 Acetaminophen 500 Mg Tablet PO QID PRN Mild Pain (1-3) Hydrocodone Bitart/Acetaminophen 1 tab 10/19/20 18:37 10/25/20 11:34 Hydrocodone/Acetaminophen (*Crx) 5-325 Mg Tablet PO 1 tab Q4H PRN Administration Pain Rated 4-6 Aspirin 81 mg 10/20/20 09:00 10/27/20 08:45 Aspirin 81 Mg Enteric Tablet PO 11/19/20 09:01 81 mg DAILY CRYSTAL Administration Atorvastatin Calcium 40 mg 10/20/20 09:00 10/27/20 08:44 Atorvastatin 40 Mg Tablet PO 40 mg DAILY CRYSTAL Administration Carvedilol 3.125 mg 10/20/20 21:00 10/27/20 08:44 Carvedilol 3.125 Mg Tablet PO 3.125 mg Q12HR CRYSTAL Administration Clopidogrel Bisulfate 75 mg 10/20/20 09:00 10/25/20 11:18 Clopidogrel Bisulfate 75 Mg Tablet PO Not Given DAILY CRYSTAL Colchicine 0.6 mg 10/20/20 09:00 10/27/20 08:44 Colchicine 0.6 Mg Tablet PO 0.6 mg DAILY CRYSTAL Administration Docusate Sodium 100 mg 10/26/20 17:00 10/27/20 08:45 Docusate Sodium 100 Mg Capsule PO 100 mg BID CRYSTAL Administration Epoetin Allan-epbx 10,000 units 10/21/20 10:05 10/25/20 16:00 Epoetin Allan-Epbx 10,000 Units/Ml Vial IV PUSH 10,000 units MOWEFR CRYSTAL Administration Heparin Sodium (Porcine) 5,000 units 10/20/20 21:00 10/27/20 08:45 Heparin Sodium 5,000 Units/Ml Vial SUB-Q 5,000 units Q12HR CRYSTAL Administration Albumin Human 50 mls @ 999 mls/hr 10/21/20 07:00 Albutein IVPB 11/20/20 07:01 Q10M PRN HYPOTENSION Lisinopril 20 mg 10/20/20 09:00 10/27/20 08:44 Lisinopril 20 Mg Tablet PO 20 mg DAILY CRYSTAL Administration Morphine Sulfate 4 mg 10/19/20 18:37 10/27/20 08:39 Morphine Sulfate (*Crx) 4 Mg/Ml Inj IV PUSH 4 mg Q2H PRN Administration Pain Rated 7-10 Ondansetron HCl 4 mg 10/19/20 18:37 10/25/20 21:33 Ondansetron Inj 4 Mg/2 Ml Vial IV PUSH 4 mg Q4H PRN Administration Nausea Pantoprazole Sodium 40 mg 10/20/20 09:00 10/27/20 08:44 Pantoprazole 40 Mg Tablet PO 40 mg DAILY CRYSTAL Administration Polyethylene Glycol 17 gm 10/25/20 13:00 10/27/20 08:54 Polyethylene Glycol 3350 17 Gm Powd.Pack PO 17 gm QAM CRYSTAL Administration Sevelamer Carbonate 800 mg 10/20/20 08:15 10/27/20 08:44 Sevelamer Carbonate 800 Mg Tablet PO 800 mg BIDWM CRYSTAL Administration Vitamin B Complex/Folic Acid 1 cap 10/20/20 09:00 10/27/20 08:44 Vitamin B Cmplx/Vit C/Folic Ac 1 Capsule PO 11/19/20 09:01 1 cap DAILY CRYSTAL Administration Radiology Results: ITS Impressions Knee X-Ray 0
--- NOTE | 2020-10-27 15:11 | PM.PNNEP ---
Progress Note: A&P Assessment and Plan (1) End stage renal disease: Code(s): N18.6 - End stage renal disease Status: Chronic Assessment and Plan: HD tomorrow and continue M/W/F schedule while hospitalized electrolytes, volume status, and clearance acceptable (2) Periprosthetic fracture around internal prosthetic left hip joint: Qualifiers: Encounter type: subsequent encounter Qualified Code(s): M97.02XD - Periprosthetic fracture around internal prosthetic left hip joint, subsequent encounter Code(s): M97.02XA - Periprosthetic fracture around internal prosthetic left hip joint, initial encounter Status: Acute Assessment and Plan: Orthopedics following high risk for surgery (but no other real options available) to be transferred to [facility] for surgery (3) Hypertension: Qualifiers: Hypertension type: unspecified Qualified Code(s): I10 - Essential (primary) hypertension Code(s): I10 - Essential (primary) hypertension Status: Acute Assessment and Plan: reasonably control at this time follow trend of hemodynamics (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 Subjective Date/time seen: 10/27/20 15:11 Appears to be doing reasonably well at the time of my visit; pain control appears satisfactory; no apparent issues or problems overnight or earlier this AM; no other events to report; possible transfer to [place] tomorrow? Exam Narrative: Exam Narrative: General: WD/WN AA female in NAD Heart: normal S1 and S2; no rub Lungs: clear to auscultation Abdomen: soft, nontender, nondistended, positive bowel sounds Extremities: no cyanosis or clubbing; no edema; pain in left leg/hip unchanged Skin: no rash Objective Data Vital Signs Vital Signs: Vital Signs Temp Pulse Resp BP Pulse Ox 10/27/20 14:00 36.2 C L 60 15 153/70 H 100 10/27/20 08:47 71 10/27/20 08:40 92 10/27/20 06:00 36.5 C 110 H 18 149/68 H 93 07/17/21 22:00 36.7 C 75 20 134/66 98 10/26/20 20:20 80 Intake/Output Intake/Output: Intake & Output 10/24/20 10/25/20 10/26/20 10/27/20 23:59 23:59 23:59 23:59 Intake Total 7234 445 0228 920 Output Total 0 2000 Balance 1020 -1220 1160 920 Meds/Results Medications: Active Medications Generic Name Dose Route Start Last Admin Trade Name Freq PRN Reason Stop Dose Admin Acetaminophen 500 mg 10/20/20 08:11 Acetaminophen 500 Mg Tablet PO QID PRN Mild Pain (1-3) Hydrocodone Bitart/Acetaminophen 1 tab 10/19/20 18:37 10/25/20 11:34 Hydrocodone/Acetaminophen (*Crx) 5-325 Mg Tablet PO 1 tab Q4H PRN Administration Pain Rated 4-6 Aspirin 81 mg 10/20/20 09:00 10/27/20 08:45 Aspirin 81 Mg Enteric Tablet PO 11/19/20 09:01 81 mg DAILY CRYSTAL Administration Atorvastatin Calcium 40 mg 10/20/20 09:00 10/27/20 08:44 Atorvastatin 40 Mg Tablet PO 40 mg DAILY CRYSTAL Administration Carvedilol 3.125 mg 10/20/20 21:00 10/27/20 08:44 Carvedilol 3.125 Mg Tablet PO 3.125 mg Q12HR CRYSTAL Administration Clopidogrel Bisulfate 75 mg 10/20/20 09:00 10/25/20 11:18 Clopidogrel Bisulfate 75 Mg Tablet PO Not Given DAILY CRYSTAL Colchicine 0.6 mg 10/20/20 09:00 10/27/20 08:44 Colchicine 0.6 Mg Tablet PO 0.6 mg DAILY CRYSTAL Administration Docusate Sodium 100 mg 10/26/20 17:00 10/27/20 16:59 Docusate Sodium 100 Mg Capsule PO 100 mg BID [facility] Administration Epoetin Allan-epbx 10,000 units 10/21/20 10:05 10/25/20 16:00 Epoetin Allan-Epbx 10,000 Units/Ml Vial IV PUSH 10,000 units MOWEFR [facility]
[2020-10-28 05:15] VITALS: BP 167/62; PULSE 60; RESP 18; TEMP 36.4; O2SAT 100
[2020-10-28] MEDS: MORPHINE SULFATE (*CRX) 4 MG/ML INJ IV PUSH (05:34)
--- NOTE | 2020-10-28 08:04 | PM.TDS ---
Transfer Discharge Sum: Prov Provider Date of admission: 10/24/20 16:18 Primary care physician: Brendan Abbott MD Admitting clinician: Delio Jean MD Consults: 10/20/20 Care Coordination Consult Routine Comment: SNF Reason for Consult:: Other Consult to Physician Routine Comment: Dr Manzanares handled dialysis orders per nurse [facility] Consulting Provider: Semaj Madrigal Reason for consultation: dialysis management Has provider been notified: Yes Consult to Physician Routine Comment: Spoke to Dr @ 15:33 (,[place]) Consulting Provider: Nicolas Peralta scallop cutter/MD group to consult: Pt is Dr Peralta patient. Camilla in Radiology sending CT pics to [facility] per Dr Peralta request/ 10-20-20 Reason for consultation: periprosthetic fx left femur Has provider been notified: Yes DS: Admitting Diagnosis Admitting Diagnosis Admitting Diagnosis: Hip pain DS: Discharge Diagnosis Discharge Diagnosis (1) Intractable pain: Code(s): R52 - Pain, unspecified Status: Acute Assessment and Plan: Patient is an 85-year-old woman with a history of end-stage renal disease on dialysis, chronic respiratory failure on 2 L of oxygen, who presented to the emergency room with left thigh pain which occurred while she was walking out of dialysis. The patient was unable to walk after the sudden episode of pain so she came to the emergency room for further evaluation. Initial vitals showed slight fever of 99.3?, heart rate normal at 82, elevated blood pressure at 206/101, normal oxygenation 94% on 2 L. initial labs showed slight leukopenia at 4100, normocytic anemia with a hemoglobin of 10, hematocrit 34%, normal platelet count, slight hyponatremia at 135, elevated creatinine at 5.2, BUN 28 on dialysis, normal lactic acid. CT left femur showed Left hip bipolar hemiarthroplasty with extensive lucencies around the femoral stem, consistent with loosening versus infection, and transverse periprosthetic fracture near the tip of the femoral stem. Severe left knee osteoarthritis. the patient was admitted into the hospital for pain control, consult orthopedic surgery and further evaluation and monitoring. During the patient's hospitalization are orthopedic surgeon, Dr. Peralta evaluated the patient and believed she needed to be transferred to a tertiary care facility due to her fracture. The patient has seen Dr. Frausto at [facility] before in so it was scheduled for Wednesday, 10/30 at [facility]. Due to the patient's fracture, needing dialysis, she could have stayed in the hospital verses went to a long term rehab facility for just a few days before being transferred to [facility]. It was decided to keep her here in the hospital to continue monitoring her, dialysis, and she was transferred to [facility] today 10/28/[address] have surgery by Dr. Jett Lopezvix was held on 10/25/20 the patient was transferred in stable condition. Patient understands and agrees the plan all questions answered. (2) Periprosthetic fracture around internal prosthetic left hip joint: Qualifiers: Encounter type: subsequent encounter Qualified Code(s): M97.02XD - Periprosthetic fracture around internal prosthetic left hip joint, subsequent encounter Code(s): M97.02XA - Periprosthetic fracture around internal prosthetic left hip joint, initial encounter Status: Acute Assessment and Plan: See above (3) End-stage renal disease needing dialysis: Code(s): N18.6 - End stage renal disease; Z99.2 - Dependence on renal dialysis Status: Acute Assessment and Plan: Nephrology consultation for dialysis management. Patient has dialysis on Wednesday and Wednesday. continue with [facility] (4) Erythropoietin deficiency anemia: Code(s): D63.1 - Anemia i
--- NOTE | 2020-10-28 08:07 | PM.PNNEP ---
Progress Note: A&P Assessment and Plan (1) End stage renal disease: Code(s): N18.6 - End stage renal disease Status: Chronic Assessment and Plan: HD due today. She transfers to [place] today. Will do a treatment here if she is still here later today. electrolytes, volume status, and clearance acceptable (2) Periprosthetic fracture around internal prosthetic left hip joint: Qualifiers: Encounter type: subsequent encounter Qualified Code(s): M97.02XD - Periprosthetic fracture around internal prosthetic left hip joint, subsequent encounter Code(s): M97.02XA - Periprosthetic fracture around internal prosthetic left hip joint, initial encounter Status: Acute Assessment and Plan: Orthopedics following high risk for surgery (but no other real options available) to be transferred to [facility] for surgery (3) Hypertension: Qualifiers: Hypertension type: unspecified Qualified Code(s): I10 - Essential (primary) hypertension Code(s): I10 - Essential (primary) hypertension Status: Acute Assessment and Plan: Blood pressure seems pretty high right now. It does drop in the 130s at times. Part of this might be fluid. Will see how it is after dialysis today. 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 (5) Renal osteodystrophy: Code(s): N25.0 - Renal osteodystrophy Status: Acute Assessment and Plan: follow trend of calcium and phosphorus Will continue to follow. Subjective Date/time seen: 10/28/20 08:07 Interval history: Patient is feeling okay. She is eager to go to [facility] today. Exam Narrative: Exam Narrative: General: WD/WN AA female in NAD Heart: normal S1 and S2; no rub or gallop Lungs: clear to auscultation Abdomen: soft, nontender, nondistended, positive bowel sounds Extremities: no cyanosis or clubbing; no edema; pain in left leg/hip unchanged Skin: no rash Or subcu nodules Objective Data Vital Signs Vital Signs: Vital Signs - 24 hr 10/27/20 08:40 10/27/20 08:47 10/27/20 14:00 Temperature 36.2 C L Pulse Rate 71 60 Respiratory Rate 15 Blood Pressure 153/70 H Pulse Oximetry 92 100 10/27/20 20:00 10/27/20 20:37 10/27/20 22:00 Temperature 36.8 C Pulse Rate 70 70 60 Respiratory Rate 15 16 Blood Pressure 169/70 H Pulse Oximetry 100 99 10/28/20 05:15 Temperature 36.4 C Pulse Rate 60 Respiratory Rate 18 Blood Pressure 167/62 H Pulse Oximetry 100 Intake/Output Intake/Output: Intake & Output 10/25/20 10/26/20 10/27/20 10/28/20 23:59 23:59 23:59 23:59 Intake Total 780 1160 920 200 Output Total 1999 Balance -1220 1160 920 200 Meds/Results Medications: Active Medications Generic Name Dose Route Start Last Admin Trade Name Freq PRN Reason Stop Dose Admin Acetaminophen 500 mg 10/20/20 08:11 Acetaminophen 500 Mg Tablet PO QID PRN Mild Pain (1-3) Hydrocodone Bitart/Acetaminophen 1 tab 10/19/20 18:37 10/25/20 11:34 Hydrocodone/Acetaminophen (*Crx) 5-325 Mg Tablet PO 1 tab Q4H PRN Administration Pain Rated 4-6 Aspirin 81 mg 10/20/20 09:00 10/27/20 08:45 Aspirin 81 Mg Enteric Tablet PO 11/19/20 09:01 81 mg DAILY CRYSTAL Administration Atorvastatin Calcium 40 mg 10/20/20 09:00 10/27/20 08:44 Atorvastatin 40 Mg Tablet PO 40 mg DAILY CRYSTAL Administration Carvedilol 3.125 mg 10/20/20 21:00 10/27/20 20:37 Carvedilol 3.125 Mg Tablet PO 3.125 mg Q12HR [facility]YSTAL Administration Clopidogrel Bisulfate 75 mg 10/20/20 09:00 10/25/20 11:18 Clopidogrel Bisulfate 75 Mg Tablet PO Not Given DAILY CRYSTAL Colchicine 0.6 mg 10/20/20 09:00 10/27/20 08:44 Colchicine 0.6 Mg Tablet PO 0.6 mg DAILY CRYSTAL Administration Docusate Sodium
== END 2020-10-28 08:29 | disposition short-term general hospital (02) | DRG 559 ==
LOC: ANHED 20:05 → ANH2MED 22:34
PROVIDERS: Internal Medicine Nephrology; Admitting Provider Internal Medicine; Emergency Provider Emergency Medicine; PCP Family Medicine Adolescent Medicine; Visit Provider Physician Assistant
DX: M97.02XA Periprosthetic fracture around internal prosthetic left hip joint, initial encounter (principal); N18.6 End stage renal disease; I13.2 Hypertensive heart and chronic kidney disease with heart failure and with stage 5 chronic kidney disease, or end stage renal disease; I50.32 Chronic diastolic (congestive) heart failure; E87.1 Hypo-osmolality and hyponatremia; J96.11 Chronic respiratory failure with hypoxia; D63.1 Anemia in chronic kidney disease; N25.0 Renal osteodystrophy; Z99.2 Dependence on renal dialysis; Z96.643 Presence of artificial hip joint, bilateral
CPT/HCPCS: 36415; 73502; 73552; 73562; 73700; 80048; 80069; 82550; 83605; 85025; 85027; 87340; 93306; 96372; 96374; 96375; 96376; 99285; A9270; G0257; G0378; J1644; J2270; J2405; J3010; J7030; Q5106